=== PATIENT | female | born 1985 | race Caucasian/White ===

== ENCOUNTER 2017-02-09 12:18 | Emergency (ER) | payer OTHER ==
--- NOTE | 2017-02-09 12:32 | UC ---
Abdominal Pain Female HPI - HPI Summary HPI Summary: right lower abdomen pain for 7 days--no nausea vomiting diarrhea,fever, vaginal discharge or urinary symptoms - History of Current Complaint Chief Complaint: UCAbdominalPain Stated Complaint: PAIN ON SIDE Time Seen by Provider: 02/09/17 12:31 Hx Obtained From: Patient Hx Last Menstrual Period: 02/01/17 ?: No Onset/Duration: Gradual Onset, Lasting Days - 7 Timing: Constant Severity Initially: Moderate Severity Currently: Moderate Pain Intensity: 7 Pain Scale Used: 0-10 Numeric Location: Discrete At: RLQ Radiates: No Character: Cramping Aggravating Factor(s): Nothing Alleviating Factor(s): Nothing Associated Signs and Symptoms: Positive: Negative Allergies/Adverse Reactions: Allergies Allergy/AdvReac Type Severity Reaction Status Date / Time Acetaminophen [From Tylenol] Allergy Severe See Comment Verified 02/09/17 12:28 Sulfa Drugs Allergy Severe Airway Verified 02/09/17 12:28 Obstruction PMH/Surg Hx/FS Hx/Imm Hx Previously Healthy: No Psychological History: Depression Other History Of: Negative For: Anticoagulant Therapy - Surgical History Surgical History: None - Family History Known Family History: Positive: None - Social History Occupation: Employed Part-time, Student Lives: With Family Alcohol Use: Rare Substance Use Type: None Substance Use Comment - Amount & Last Used: unknown Smoking Status (MU): Light Every Day Tobacco Smoker Type: Cigarettes Amount Used/How Often: 2/3 cigs per day - Immunization History Most Recent Tetanus Shot: Pt states a few years ago Review of Systems Constitutional: Negative Skin: Negative Eyes: Negative ENT: Negative Respiratory: Negative Cardiovascular: Negative Gastrointestinal: Abdominal Pain Genitourinary: Negative Motor: Negative Neurovascular: Negative Musculoskeletal: Negative Neurological: Negative Psychological: Negative Is Patient Immunocompromised?: No All Other Systems Reviewed And Are Negative: Yes Physical Exam Triage Information Reviewed: Yes Appearance: Well-Appearing, Pain Distress, Thin Vital Signs: Initial Vital Signs Temp 97.7 F 02/09/17 12:21 Pulse 64 02/09/17 12:21 Resp 16 02/09/17 12:21 BP 108/68 02/09/17 12:21 Pulse Ox 100 02/09/17 12:21 Vital Signs Reviewed: Yes Eye Exam: Normal Eyes: Positive: Conjunctiva Clear ENT Exam: Normal ENT: Positive: Normal ENT inspection, Hearing grossly normal. Negative: Nasal congestion, Nasal drainage, Trismus, Muffled/hoarse voice Dental Exam: Normal Neck exam: Normal Neck: Positive: Supple, Nontender Respiratory Exam: Normal Respiratory: Positive: Chest non-tender, Lungs clear, Normal breath sounds, No respiratory distress, No accessory muscle use Cardiovascular Exam: Normal Cardiovascular: Positive: RRR, No Murmur, Pulses Normal, Brisk Capillary Refill Abdominal Exam: Other Abdomen Description: Positive: No Organomegaly, Soft, Other: - rlq pain. Negative: CVA Tenderness (R), CVA Tenderness (L), Distended, McBurney's Point Tenderness, Peritoneal Signs Bowel Sounds: Positive: Present Musculoskeletal Exam: Normal Musculoskeletal: Positive: Strength Intact, ROM Intact, No Edema Neurological Exam: Normal Neurological: Positive: Alert, Muscle Tone Normal Psychological Exam: Normal Skin Exam: Normal Diagnostics - Laboratory Diagnostic Studies Completed/Ordered: UA-+Nitrites - Radiology No standard instances Xray Interpretation: Positive (See Comments) - small amount free fluid in right , left ovary with 2 cm ovarian cyst, iud appears in place Radiology Interpretation Completed By: Radiologist Re-Evaluation - Re-Evaluation First Eval Change: Improved - patient had a brief syncope episode with vomitng after recieveing pain med-(patient states this has happened before) Abd Pain Female Course/Dx - Course Course Of Treatment: NSAIDS, Rest warm compress to abdomen follow with pcp next week to ED for worsening or increasing symptoms - Differential Dx/Diagnosis Differential Diagnosis: Ectopic , Ovarian Cyst, , Renal Colic , Urinary Tract Infection Provider Diagnoses: Ovarian Cyst, UTI Discharge - Discharge Plan Condition: Stable Disposition: HOME Prescriptions: Ibuprofen TAB* [Motrin TAB* 600 MG] 600 mg PO Q6H PRN #40 tab PRN Reason: Pain Nitrofurantoin Monohyd Macro [Macrobid] 100 mg PO BID #20 cap Patient Education Materials: Ovarian Cyst (ED), Urinary Tract Infection in Women (ED), Syncope (ED) Referrals: Ambreen Rao NP [Primary Care Provider] - 2 Weeks
[2017-02-09] MEDS ORDERED: Ketorolac INJ* 60 MG/2 ML VIAL IM ONE (12:37)
--- NOTE | 2017-02-09 15:00 | RAD ---
Indication: 2 weeks RIGHT pelvic pain. History of ovarian cyst. IUD. LMP February 01, 2017. Comparison: June 18, 2012 CT. Technique: Transvaginal pelvic ultrasound. Report: Unremarkable 8.9 x 5.1 x 4.8 cm anteverted uterus. IUD appears in appropriate position in the endometrial cavity. 6.6 mm endometrium thickness. Physiologic small volume of free fluid in the cul-de-sac and RIGHT adnexal region. 3.2 x 2.3 x 2.1 cm RIGHT ovary with documented vascular flow is remarkable for a 0.9 cm dominant follicle. 2.5 x 2.2 x 3.0 cm LEFT ovary with documented vascular flow is remarkable for a 2.0 x 1.8 x 1.9 cm unilocular simple cyst consistent with a follicular cyst. Negative for visualized extra ovarian adnexal region lesions. IMPRESSION: 1. IUD appears in appropriate position. 2. 2.0 cm follicular cyst of the LEFT ovary without concern. 3. Physiologic small volume of free fluid in the cul-de-sac and RIGHT adnexal region.
[2017-02-09 15:21] VITALS: BP 110/72
== END 2017-02-09 15:15 | disposition home or self-care (01) ==
LOC: UCEAST 12:18
DX: N83.209 Unspecified ovarian cyst, unspecified side (principal)
CPT/HCPCS: 76830; 81003; 84702; 87077; 87086; 87186; 96372; 99212; G0463; J1885

== ENCOUNTER 2018-02-14 12:43 | Emergency (ER) | payer SELFPAY ==
[2018-02-14] MEDS ORDERED: NS 0.9% 1000 ML* 1,000 ML IV ONE (13:01)
[2018-02-14] MEDS ORDERED: Ondansetron ODT TAB* 4 MG PO ONE (13:02)
--- OUTSIDE RECORDS SUMMARY | 2018-02-14 13:09 | XMS REPORT ---
:1985 External Reference #:[id number] Author Organization [employer] Address [address] [place] [address] Phone [phone] Care Team Providers Name Role Phone Jacy Ramos MD Primary Care Physician Unavailable Problems Date Description Provider Status Onset: 11/22/2010 Asthma without status asthmaticus Ambreen Rao, N.P. Active Onset: 11/22/2010 Depressive disorder Ambreen Rao, N.P. Active Family History Date Family Member(s) Problem(s) Comments General Sleep Apnea General Asthma Father Hypoglycemia Back Injury Mother Asthma First Son Alive And Well age 6 Siblings 3 2 Brothers, 1 Sister, all with asthma Social History Type Date Description Comments Marital Status Single Lives With Children Occupation Currently Working Cigarette Use current cigarette smoker Cigarette Use Patient is a current cigarette smoker, smokes every day ETOH Use Rarely consumes alcohol Recreational Drug Use Denies Drug Use Smoking Light tobacco smoker (10 or fewer cigarettes/day) Daily Caffeine Half Caf Coffee 16 oz a day, then decaf Exercise Type/Frequency Exercises regularly Elliptical, yoga several times weekly General Hx Text Allergies, Adverse Reactions, Alerts Date Description Reaction Status Severity Comments 11/22/2010 Sulfa hives active Moderate 11/22/2010 Acetaminophen low heart rate active Moderate Medications Medication Date Status Form Strength Qnty SIG Indications Ordering Provider Lorazepam 12/13 Active Tablets 0.5mg 15tab one by F33.9 Ambreen s mouth hs Varn, N.P. prn sleep Escitalopram 12/13 Active Tablets 20mg 30tab take one F33.9 Ambreen s tablet by Varn, N.P. mouth every day Sumatriptan 02/16 Active Tablets 50mg 9tabs take one G43.109 Leonel Succinate /2015 tablet at GREGORY Cook onset of headache. if no relief you can take a second tab 2 hours later. no more than 4 times a month Fluticasone 02/16 Active Suspension 50mcg/Act 16uni 2 sprays J30.9 Leonel Propionate ts each GREGORY Cook nostril qd. Naproxen 12/09 Active Tablets 250mg 30tab 1 tablet G43.109 Leonel s by mouth GREGORY Cook twice at the first sign of migraine as needed Clindamycin 06/06 Hx Cream 2% 40gm one N76.0 Jacy Phosphate applicato Jerry Ramos M.D. 08/10 intravagi manohar at bedtime for 7 nights Ciprofloxacin HCL 05/07 Hx Tablets 250mg 14tab one by R35.0 Ambreen s mouth Varn, N.P. - twice a 05/14 day for days Fluconazole 05/07 Hx Tablets 150mg 2tabs one by R35.0 Ambreen /2017 mouth may Varn, N.P. - repeat in 05/13 3 days needed Paroxetine HCL 08/23 Hx Tablets 40mg 30tab 1 by F41.1 s mouth Varn, N.P. - every day 01/10 Clonazepam 08/23 Hx Tablets 0.5mg 20tab Take One F41.1 s Tablet By Varn, N.P. - Mouth 01/10 as Needed For Sleep; Maximum Daily Dose=1 Clindamycin 07/28 Hx Cream 2% 40gm one N76.0 Ambreen Phosphate applicato Varn, N.P. - r 08/04 intravagi manohar at bedtime for 7 nights Nicotine Mini 07/21 Hx Lozenges 2mg 81uni 1 Z00.00 Leonel ts lozenges GREGORY Cook - every 2 /09 needed. Amoxicillin 02/27 Hx Tablets 500mg 30tab 1 tablet J06.9 Rashard s by mouth GREGORY Zheng - every 8 10/06 hours x 10 days Methylprednisolon 07/19 Hx Tablets 4mg QS as M25.532 Leonel e (Davin) directed GREGORY Cook - on 12/09 package Citalopram 04/06 Hx Tablets 40mg 30tab Take Hydrobromid s One-Half Varn, N.P. - Tablet By 08/23 Twice A Day Prednisone (Davin) 01/26 Hx Tablets 5mg 21tab take 6 354.0 s tabs/30mg GREGORY Velasquez - on day 05/17 1,take tabs/25mg on day 2, take 4 tabs/20mg on day 3, take 3 tabs/15mg on day 4, 2 tabs day 2 Naproxen 01/13 Hx Tablets 250mg 14tab 1 tablet 719.41 Calixto s by mouth Garcia, - twice a M.D. 05/17 day needed pain, with foods Cyclobenzaprine 01/13 Hx Tablets 5mg 21tab 1 tablet 719.41 Calixto HCL s by mouth Garcia, - three M.D. 01/26 times a day as needed Clotrimazole 11/03 Hx Lozenges 10mg 70uni 5 times a 112.0 day Pachikara, - M.D. 01/12 Benzonatate 07/07 Hx Capsules 100mg 30cap one by 465.9 s mouth Varn, N.P. - three 07/21 daily as needed for cough Citalopram 04/02 Hx Tablets 40mg 30tab Take 300.00 Hydrobromide s One-Half Varn, N.P. - Tablet By 01/26 Twice A Day Fluticasone 07/22 Hx Suspension 50mcg/Act 1mon 1 spray 381.04 Huan Propionate each Florence Lakhani, - nostril M.D.,FACP 07/07 in Cleocin 06/13 Hx Cream 2% 1unit 1 s applicato Varn, N.P. - r 06/20 intravagi manohar hs for 7 nights Clindamycin 11/30 Hx Cream 2% 1tube one 616.10 applicato Varn, N.P. - r 12/07 intravagi manohar hs for 7 nights Nuvaring 11/30 Hx Ring 0.12-0.01 1unit insert V25.9 5mg/24HR s one per Varrajendra, N.P. - vagina 11/21 Celexa 11/22 Hx Tablets 20mg 30tab 06/05 Taisha s tablet Amy, Jerry bid M.DCosmo, FACP 12/20 Citalopram 11/22 Hx Tablets 20mg 60tab Take One 300.00 Taisha Hydrobromide s Tablet By Jerry Reyes Mouth MAnurag, FACP 04/02 Every Hours Prilosec Hx Capsules DR 10mg 90cap 1 po qd Unknown /0000 s - 07/07 Oxycodone HCL 00/ Hx Unknown /0000 - 01/26 Medications Administered in Office Medication Date Status Form Strength Qnty SIG Indications Ordering Provider PPD Administered Injection Unknown 7 Immunizations CPT Code Status Date Vaccine Reaction Lot # [id number] Given 07/24/2017 Tdap - No immediate reaction... [id number] Tetanus/Diptheria/Acellula r Pertussis 66406 Given 08/28/1997 Hep B Pediatric/Adolescent 29616 Given 04/06/1997 Hep B Pediatric/Adolescent 13366 Given 08/08/1996 Hep B Pediatric/Adolescent 27185 Given 12/02/1991 Measles Mumps And Rubella MMR 87468 Given 08/22/1988 Measles Mumps And Rubella MMR Vital Signs Date Vital Result Comment 01/29/2018 Height 63 inches 5'3" Weight 101.00 lb Heart Rate 74 /min BP Systolic 128 mmHg BP Diastolic 68 mmHg Body Temperature 97.1 F O2 % BldC Oximetry 99 % BMI (Body Mass Index) 17.9 kg/m2 09/08/2017 Height 63 inches 5'3" Weight 110.00 lb w/ shoes Heart Rate 62 /min BP Systolic Sitting 110 mmHg BP Diastolic Sitting 76 mmHg Respiratory Rate 16 /min O2 % BldC Oximetry 99 % on Ra BMI (Body Mass Index) 19.5 kg/m2 Neck Circumference in inches 11.25 08/10/2017 Weight 110.00 lb Heart Rate 60 /min BP Systolic 102 mmHg BP Diastolic 64 mmHg Body Temperature 98.5 F O2 % BldC Oximetry 97 % 07/24/2017 Height 63 inches 5'3" Weight 110.00 lb Heart Rate 68 /min BP Systolic 96 mmHg BP Diastolic 64 mmHg Body Temperature 96.0 F O2 % BldC Oximetry 98 % BMI (Body Mass Index) 19.5 kg/m2 05/07/2017 Weight 111.00 lb Heart Rate 76 /min BP Systolic 90 mmHg BP Diastolic 60 mmHg Body Temperature 99.2 F O2 % BldC Oximetry 96 % 01/10/2017 Weight 112.75 lb Heart Rate 62 /min BP Systolic 102 mmHg BP Diastolic 60 mmHg Body Temperature 98.3 F O2 % BldC Oximetry 98 % 12/13/2016 Weight 118.50 lb Heart Rate 67 /min BP Systolic 118 mmHg BP Diastolic 78 mmHg Body Temperature 97.9 F O2 % BldC Oximetry 98 % 09/29/2016 Weight 108.50 lb Heart Rate 76 /min BP Systolic 118 mmHg BP Diastolic 66 mmHg Body Temperature 97.5 F O2 % BldC Oximetry 99 % 08/23/2016 Weight 108.00 lb Heart Rate 54 /min BP Systolic Sitting 110 mmHg BP Diastolic Sitting 76 mmHg Body Temperature 97.1 F O2 % BldC Oximetry 99 % 07/28/2016 Height 63 inches 5'3" Weight 106.00 lb Heart Rate 68 /min Body Temperature 97.4 F O2 % BldC Oximetry 98 % BMI (Body Mass Index) 18.8 kg/m2 07/21/2016 Height 63 inches 5'3" Weight 105.00 lb Heart Rate 65 /min BP Systolic 104 mmHg BP Diastolic 74 mmHg O2 % BldC Oximetry 99 % BMI (Body Mass Index) 18.6 kg/m2 02/28/2016 Weight 110.56 lb Heart Rate 86 /min BP Systolic Sitting 110 mmHg BP Diastolic Sitting 78 mmHg Body Temperature 98.0 F O2 % BldC Oximetry 97 % 02/17/2016 Weight 110.00 lb Heart Rate 68 /min BP Systolic Sitting 98 mmHg BP Diastolic Sitting 63 mmHg Respiratory Rate 15 /min Body Temperature 98.3 F O2 % BldC Oximetry 98 % 12/10/2015 Height 63 inches 5'3" Weight 107.38 lb Heart Rate 64 /min BP Systolic Sitting 90 mmHg BP Diastolic Sitting 64 mmHg Body Temperature 98.3 F O2 % BldC Oximetry 98 % BMI (Body Mass Index) 19.0 kg/m2 07/29/2015 Height 63 inches 5'3" Weight 108.00 lb Heart Rate 60 /min BP Systolic Sitting 96 mmHg BP Diastolic Sitting 60 mmHg Respiratory Rate 16 /min Pain Level 0 BMI (Body Mass Index) 19.1 kg/m2 07/19/2015 Weight 108.75 lb Heart Rate 58 /min BP Systolic Sitting 108 mmHg BP Diastolic Sitting 65 mmHg Body Temperature 98.0 F Pain Level 0 O2 % BldC Oximetry 98 % 05/17/2015 Height 63.25 inches 5'3.25" Weight 105.25 lb Heart Rate 88 /min BP Systolic Sitting 96 mmHg BP Diastolic Sitting 64 mmHg Body Temperature 96.6 F Pain Level 0 O2 % BldC Oximetry 98 % BMI (Body Mass Index) 18.5 kg/m2 01/26/2015 Height 63 inches 5'3" Weight 109.75 lb Heart Rate 71 /min BP Systolic Sitting 102 mmHg BP Diastolic Sitting 60 mmHg Respiratory Rate 16 /min Body Temperature 97.2 F Pain Level 3 when not using it, 8 when using it. O2 % BldC Oximetry 97 % BMI (Body Mass Index) 19.4 kg/m2 01/20/2015 Height 63 inches 5'3" Weight 109.00 lb Heart Rate 70 /min BP Systolic 107 mmHg BP Diastolic 72 mmHg BMI (Body Mass Index) 19.3 kg/m2 01/13/2015 Height 63.5 inches 5'3.50" Weight 109.12 lb Heart Rate 57 /min BP Systolic Sitting 96 mmHg BP Diastolic Sitting 60 mmHg Body Temperature 97.5 F O2 % BldC Oximetry 98 % BMI (Body Mass Index) 19.0 kg/m2 11/03/2014 Height 63.5 inches 5'3.50" Weight 108.25 lb Heart Rate 68 /min BP Systolic Sitting 104 mmHg BP Diastolic Sitting 78 mmHg Body Temperature 97.7 F O2 % BldC Oximetry 97 % BMI (Body Mass Index) 18.9 kg/m2 12/22/2013 Height 63.5 inches 5'3.50" Weight 100.75 lb Heart Rate 62 /min BP Systolic Sitting 100 mmHg BP Diastolic Sitting 60 mmHg Body Temperature 98.1 F BMI (Body Mass Index) 17.6 kg/m2 11/21/2013 Weight 105.00 lb Heart Rate 60 /min BP Systolic Sitting 100 mmHg BP Diastolic Sitting 72 mmHg Body Temperature 98.5 F 07/07/2013 Weight 103.25 lb Heart Rate 64 /min BP Systolic 122 mmHg BP Diastolic 84 mmHg Body Temperature 98.3 F 12/16/2012 Weight 99.00 lb Heart Rate 66 /min BP Systolic Sitting 102 mmHg BP Diastolic Sitting 64 mmHg Body Temperature 97.4 F 08/19/2012 Height 63.5 inches 5'3.50" Weight 106.75 lb Heart Rate 64 /min BP Systolic Sitting 120 mmHg BP Diastolic Sitting 60 mmHg Body Temperature 98.4 F BMI (Body Mass Index) 18.6 kg/m2 07/22/2012 Height 63.5 inches 5'3.50" Weight 104.00 lb Heart Rate 72 /min BP Systolic Sitting 104 mmHg BP Diastolic Sitting 60 mmHg Body Temperature 98.5 F BMI (Body Mass Index) 18.1 kg/m2 06/10/2012 Height 62.75 inches 5'2.75" Weight 101.00 lb Heart Rate 62 /min BP Systolic Sitting 110 mmHg BP Diastolic Sitting 70 mmHg BMI (Body Mass Index) 18.0 kg/m2 12/01/2011 Height 62.75 inches 5'2.75" Weight 97.00 lb Heart Rate 68 /min BP Systolic Sitting 106 mmHg BP Diastolic Sitting 60 mmHg Body Temperature 98.7 F BMI (Body Mass Index) 17.3 kg/m2 08/29/2011 Height 62.75 inches 5'2.75" Weight 99.00 lb Heart Rate 70 /min BP Systolic Sitting 98 mmHg BP Diastolic Sitting 64 mmHg Body Temperature 98.5 F BMI (Body Mass Index) 17.7 kg/m2 12/20/2010 Height 62.75 inches 5'2.75" Weight 103.00 lb Heart Rate 68 /min BP Systolic Sitting 90 mmHg BP Diastolic Sitting 60 mmHg BMI (Body Mass Index) 18.4 kg/m2 11/22/2010 Height 62.75 inches 5'2.75" Weight 102.00 lb Heart Rate 60 /min BP Systolic Sitting 102 mmHg BP Diastolic Sitting 76 mmHg BMI (Body Mass Index) 18.2 kg/m2 Results Test Date Test Result H/L Range Note Urine Culture And 05/07/2017 Urine Culture SEE RESULT BELOW 1 Sensitivities Ua Routine 05/07/2017 Ua Specific [place] 1015 Ua PH 7 Ua Color yellow Ua Appera clear Ua WBC neg Ua Protein neg Ua Glucose neg Ua Ketones neg Ua Bilirubin neg Ua Urobilinogen neg Ua Nitrite neg Ua Occult Blood about 250 Urine Culture And Sensitivities 02/09/2017 Urine Culture SEE RESULT BELOW 2, 3 Lipid Profile (Trig/Chol/HDL) 11/10/2016 Triglycerides 61 mg/dL 4 Cholesterol 175 mg/dL 5 HDL Cholesterol 54.1 mg/dL 6 LDL Cholesterol 109 mg/dL 7 Laboratory test finding 11/10/2016 Glucose 76 mg/dL 70-100 8 CBC Auto Diff 09/29/2016 White Blood Count 5.2 10^3/uL 3.5-10.8 Red Blood Count 4.50 10^6/uL 4.0-5.4 Hemoglobin 13.7 g/dL 12.0-16.0 Hematocrit 41 % 35-47 Mean Corpuscular Volume 91 fL 80-97 Mean Corpuscular Hemoglobin 31 pg 27-31 Mean Corpuscular HGB Conc 33 g/dL 31-36 Red Cell Distribution Width 13 % 10.5-15 Platelet Count 266 10^3/uL 150-450 Mean Platelet Volume 8 um3 7.4-10.4 Abs Neutrophils 3.0 10^3/uL 1.5-7.7 Abs Lymphocytes 1.7 10^3/uL 1.0-4.8 Abs Monocytes 0.4 10^3/uL 0-0.8 Abs Eosinophils 0.1 10^3/uL 0-0.6 Abs Basophils 0 10^3/uL 0-0.2 Abs Nucleated RBC 0 10^3/uL Granulocyte % 57.7 % 38-83 Lymphocyte % 32.9 % 25-47 Monocyte % 7.5 % 1-9 Eosinophil % 1.4 % 0-6 Basophil % 0.5 % 0-2 Nucleated Red Blood Cells % 0 Laboratory test finding 09/29/2016 Ferritin 20.0 ng/mL 11-307 TSH (Thyroid Stim Horm) 1.45 mcIU/mL 0.34-5.60 Laboratory test 07/28/2016 Cytology SEE RESULT BELOW 9 finding GC/Chlamydia 07/28/2016 Chlamydia trachomatis Negative Negative Amplified Rna Rna Neisseria gonorrhoeae (GC) Rna Negative Negative GC/Chlamydia Amplified Rna 05/17/2015 Chlamydia trachomatis Rna Negative Negative Neisseria gonorrhoeae (GC) Rna Negative Negative Urine Drug SCR ED & 04/04/2015 Amphetamine Ur Screen None Detected None Detect Pain [facility] Barbiturates Urine Screen None Detected None Detect Benzodiazepine Urine Screen None Detected None Detect Urine Cannabinoids Screen None Detected None Detect Urine Cocaine Screen None Detected None Detect Urine Opiates Screen None Detected None Detect Urine Phencyclidine Screen None Detected None Detect 10 Laboratory test 12/22/2013 Cytology RUN DATE: finding <SEE NOTE> GC/Chlamydia Amplified 12/22/2013 GC/Chlamydia Rna (SEE NOTE) 12 Rna HPV High Risk 12/22/2013 Human Papillomavirus See Comment 13 Source HPV High Risk Type 16, PCR Negative Negative HPV High Risk Type 18, PCR Negative Negative HPV Other Risk types Negative Negative 14 Laboratory test finding 12/10/2012 Magnesium 1.7 mg/dL 1.7-2.6 Lipase 20 U/L Low 22-51 Troponin I 0 ng/mL 0-0.06 15 C Reactive Protein 5.4 mg/dL High Less than 0.5 Comp Metabolic Panel 12/10/2012 Sodium 140 mmol/L 133-145 Potassium 3.3 mmol/L Low 3.5-5.0 Chloride 105 mmol/L 101-111 Co2 Carbon Dioxide 24.0 mmol/L 22-32 Anion Gap 11.0 mmol/L 2-11 Glucose 83 mg/dL 70-100 Blood Urea Nitrogen 7 mg/dL 6-24 Creatinine 0.80 mg/dL 0.50-1.40 BUN/Creatinine Ratio 8.8 8-20 Calcium 8.9 mg/dL 8.1-9.9 Total Protein 6.8 g/dL 6.2-8.1 Albumin 3.9 g/dL 3.6-5.4 Globulin 2.9 g/dL 2-4 Albumin/Globulin Ratio 1.3 1-3 Total Bilirubin 0.8 mg/dL 0.4-1.5 Alkaline Phosphatase 40 U/L 30-110 Alt 23 U/L 14-54 Ast 46 U/L High 12-42 Egfr Non- 87.4 >60 Egfr 112.4 >60 16 Stool For Blood 12/10/2012 Stool Occult Blood (SEE NOTE) 17 Laboratory test finding 12/10/2012 C. difficile Amplified Dna (SEE NOTE) 18 Stool Culture (SEE NOTE) 19 O P: Giardia/Cryptospor Screen (SEE NOTE) 20 Cryptosporidium Confirm Nysdoh (SEE NOTE) 21 Urinalysis 12/10/2012 Urine Color Yellow Urine Appearance Clear Urine Specific [place] 1.027 1.010-1.030 Urine Esterase Negative Negative Urine Nitrate Negative Negative Urine Urobilinogen Negative E.U./dL Negative Urine Protein 1+ mg/dL Negative Urine pH 6.0 5-9 Urine Blood 2+ Negative Urine Ketones 3+ mg/dL Negative Urine Bilirubin 1+ Negative Urine Glucose Negative mg/dL Negative Urine Microscopic 12/10/2012 Urine WBC 1+ (<10 /hpf) None Seen Urine RBC 2+ (>3-10 /hpf) None Seen Urine Mucus Present /lpf Absent Urine Epithelial Cells 2+ Squamous /hpf None Seen Bacteria Urine 1+ None Seen Laboratory test finding 12/10/2012 Inr 0.87 0.87-0.97 Activated Partial Thrombo Time 28.3 seconds 22.18-37.18 Laboratory test finding 12/10/2012 Serum Negative Negative 22 CBC Auto Diff 12/10/2012 White Blood Count 6.9 10^3/uL 4.8-10.8 Red Blood Count 4.89 10^6/uL 4.0-5.4 Hemoglobin 14.6 g/dL 12.0-16.0 Hematocrit 44 % 35-47 Mean Corpuscular Volume 91 fL 80-97 Mean Corpuscular Hemoglobin 30 pg 27-31 Mean Corpuscular HGB Conc 33 g/dL 31-36 Red Cell Distribution Width 13 % 10.5-15 Platelet Count 212 10^3/uL 150-450 Mean Platelet Volume 8 um3 7.4-10.4 Abs Neutrophils 5.2 10^3/uL 1.5-7.7 Abs Lymphocytes 0.7 10^3/uL Low 1.0-4.8 Abs Monocytes 0.7 10^3/uL 0-0.8 Abs Eosinophils 0.2 10^3/uL 0-0.6 Abs Basophils 0 10^3/uL 0-0.2 Abs Nucleated RBC 0 10^3/uL Granulocyte % 75.6 % 38-83 Lymphocyte % 10.7 % Low 25-47 Monocyte % 10.8 % High 1-9 Eosinophil % 2.7 % 0-6 Basophil % 0.2 % 0-2 Nucleated Red Blood Cells % 0 Urinalysis 12/07/2012 Urine Color Yellow Urine Appearance Clear Urine Specific [place] 1.022 1.010-1.030 Urine Esterase 1+ Negative Urine Nitrate Negative Negative Urine Urobilinogen Negative E.U./dL Negative Urine Protein Trace mg/dL Negative Urine pH 5.5 5-9 Urine Blood Negative Negative Urine Ketones 3+ mg/dL Negative Urine Bilirubin 1+ Negative Urine Glucose Negative mg/dL Negative Urine Microscopic 12/07/2012 Urine WBC 1+ (<10 /hpf) None Seen Urine RBC None Seen None Seen Urine Epithelial Cells 1+ Squamous /hpf None Seen Bacteria Urine 1+ None Seen Crystals Urine Amorphous /lpf None Seen Urine Culture And 12/07/2012 Urine Culture (SEE NOTE) 23 Sensitivities CBC Auto Diff 12/07/2012 White Blood Count 8.8 10^3/uL 4.8-10.8 Red Blood Count 5.07 10^6/uL 4.0-5.4 Hemoglobin 15.3 g/dL 12.0-16.0 Hematocrit 47 % 35-47 Mean Corpuscular Volume 92 fL 80-97 Mean Corpuscular Hemoglobin 30 pg 27-31 Mean Corpuscular HGB Conc 33 g/dL 31-36 Red Cell Distribution Width 14 % 10.5-15 Platelet Count 251 10^3/uL 150-450 Mean Platelet Volume 8 um3 7.4-10.4 Abs Neutrophils 7.7 10^3/uL 1.5-7.7 Abs Lymphocytes 0.5 10^3/uL Low 1.0-4.8 Abs Monocytes 0.6 10^3/uL 0-0.8 Abs Eosinophils 0 10^3/uL 0-0.6 Abs Basophils 0 10^3/uL 0-0.2 Abs Nucleated RBC 0.01 10^3/uL Granulocyte % 87.6 % High 38-83 Lymphocyte % 5.6 % Low 25-47 Monocyte % 6.3 % 1-9 Eosinophil % 0.2 % 0-6 Basophil % 0.3 % 0-2 Nucleated Red Blood Cells % 0.1 Comp Metabolic Panel 12/07/2012 Sodium 136 mmol/L 133-145 Potassium 3.4 mmol/L Low 3.5-5.0 Chloride 100 mmol/L Low 101-111 Co2 Carbon Dioxide 26.0 mmol/L 22-32 Anion Gap 10.0 mmol/L 2-11 Glucose 83 mg/dL 70-100 Blood Urea Nitrogen 11 mg/dL 6-24 Creatinine 1.00 mg/dL 0.50-1.40 BUN/Creatinine Ratio 11.0 8-20 Calcium 8.8 mg/dL 8.1-9.9 Total Protein 6.6 g/dL 6.2-8.1 Albumin 4.1 g/dL 3.6-5.4 Globulin 2.5 g/dL 2-4 Albumin/Globulin Ratio 1.6 1-3 Total Bilirubin 0.9 mg/dL 0.4-1.5 Alkaline Phosphatase 46 U/L 30-110 Alt 16 U/L 14-54 Ast 31 U/L 12-42 Egfr Non- 67.6 >60 Egfr 86.9 >60 24 Laboratory test finding 12/07/2012 Lipase 17 U/L Low 22-51 C Reactive Protein 3.4 mg/dL High Less than 0.5 Ua Routine 08/19/2012 Ua Specific [place] 1.005 Ua PH 6 Ua Color pale yellow Ua Appera slight cloudy Ua WBC neg Ua Protein neg Ua Glucose neg Ua Ketones neg Ua Bilirubin neg Ua Urobilinogen neg Ua Nitrite neg Ua Occult Blood large 200+ Laboratory test finding 08/19/2012 Test Urine neg Urinalysis 06/17/2012 Urine Color Yellow Urine Appearance Clear Urine Specific [place] 1.019 1.010-1.030 Urine Esterase Negative Negative Urine Nitrate Negative Negative Urine Urobilinogen Negative E.U./dL Negative Urine Protein Negative mg/dL Negative Urine pH 6.0 5-9 Urine Blood Negative Negative Urine Ketones 2+ mg/dL Negative Urine Bilirubin Negative Negative 25 Urine Glucose Negative mg/dL Negative Laboratory test finding 06/17/2012 Urine Negative Negative 26 CBC Auto Diff 06/17/2012 White Blood Count 9.4 10^3/uL 4.8-10.8 Red Blood Count 4.11 10^6/uL 4.0-5.4 Hemoglobin 13.0 g/dL 12.0-16.0 Hematocrit 38 % 35-47 Mean Corpuscular Volume 92 fL 80-97 Mean Corpuscular Hemoglobin 32 pg High 27-31 Mean Corpuscular HGB Conc 34 g/dL 31-36 Red Cell Distribution Width 12 % 10.5-15 Platelet Count 194 10^3/uL 150-450 Mean Platelet Volume 8 um3 7.4-10.4 Abs Neutrophils 7.3 10^3/uL 1.5-7.7 Abs Lymphocytes 1.3 10^3/uL 1.0-4.8 Abs Monocytes 0.6 10^3/uL 0-0.8 Abs Eosinophils 0.2 10^3/uL 0-0.6 Abs Basophils 0 10^3/uL 0-0.2 Abs Nucleated RBC 0 10^3/uL Granulocyte % 77.4 % 38-83 Lymphocyte % 13.9 % Low 25-47 Monocyte % 6.4 % 1-9 Eosinophil % 2.1 % 0-6 Basophil % 0.2 % 0-2 Nucleated Red Blood Cells % 0 Comp Metabolic Panel 06/17/2012 Sodium 139 mmol/L 133-145 Potassium 3.5 mmol/L 3.5-5.0 Chloride 106 mmol/L 101-111 Co2 Carbon Dioxide 27.0 mmol/L 22-32 Anion Gap 6.0 mmol/L 2-11 Glucose 84 mg/dL 70-100 Blood Urea Nitrogen 8 mg/dL 6-24 Creatinine 0.80 mg/dL 0.50-1.40 BUN/Creatinine Ratio 10.0 8-20 Calcium 8.4 mg/dL 8.1-9.9 Total Protein 6.6 g/dL 6.2-8.1 Albumin 3.7 g/dL 3.6-5.4 Globulin 2.9 g/dL 2-4 Albumin/Globulin Ratio 1.3 1-3 Total Bilirubin 0.5 mg/dL 0.4-1.5 Alkaline Phosphatase 33 U/L 30-110 Alt 10 U/L Low 14-54 Ast 18 U/L 12-42 Egfr Non- 87.4 >60 Egfr 112.4 >60 27 Urinalysis 06/16/2012 Urine Color Yellow Urine Appearance Clear Urine Specific [place] 1.021 1.010-1.030 Urine Esterase Negative Negative Urine Nitrate Positive Negative Urine Urobilinogen Negative E.U./dL Negative Urine Protein Negative mg/dL Negative Urine pH 7.0 5-9 Urine Blood Negative Negative Urine Ketones Negative mg/dL Negative Urine Bilirubin Negative Negative 28 Urine Glucose Negative mg/dL Negative Urine Microscopic 06/16/2012 Urine WBC None Seen None Seen Urine RBC None Seen None Seen Urine Epithelial Cells 1+ Squamous /hpf None Seen Bacteria Urine 3+ None Seen Urine Culture And 06/16/2012 Urine Culture (SEE NOTE) 29 Sensitivities Laboratory test finding 06/10/2012 Cytology RUN DATE: SEE NOTE> GC/Chlamydia Amplified 06/10/2012 GC/Chlamydia Rna (SEE NOTE) 31 Rna GC/Chlamydia Aptima 12/05/2011 M 32 - <SEE NOTE> CBC Auto Diff 10/22/2011 White Blood Count 13.8 CUMM High 4.8-10.8 Red Cell Count 3.97 CUMM Low 4.2-5.4 Hemoglobin 12.8 g/dL 12.0-16.0 Hematocrit 37 % 35-47 Mean Corpuscular Volume 92 um3 79-97 Mean Corpuscular Hemoglob 32 pg High 27-31 Mean Corpuscular HGB Cone 35 g/dL 32-36 Redcell Distribution WDTH 14 % 10.5-15 Platelet Count 228 CUMM 150-450 Mean Platelet Volume 8.2 um3 7.4-10.4 Absolute Neutrophil Count 11.8 High 1.5-7.7 33 Manual Differential 10/22/2011 Polysegmented Neutrophil 91 % High 38-83 Lymphocyte 5 % Low 25-47 Monocyte 4 % 0-13 Anisocytosis SLIGHT Urine Culture & 10/22/2011 M <SEE NOTE> 34, 35 Sensitivi Comp Metabolic Panel 10/22/2011 Sodium 132 mmol/L Low 135-145 Potassium 3.4 mmol/L Low 3.5-5.0 Chloride 101 mmol/L 101-111 Co2 (Carbon Dioxide) 26.0 mmol/L 22-32 Anion Gap 5.0 mmol/L 2-11 36 Glucose 76 mg/dL 70-100 BUN 8 mg/dL 6-24 Creatinine 0.9 mg/dL 0.50-1.40 One Over Creatinine 1.11 BUN/Creatinine Ratio 8.9 8-20 Calcium 8.8 mg/dL 8.1-9.9 Total Protein 6.7 GM/DL 6.2-8.1 Albumin 3.7 GM/DL 3.6-5.4 Globulin 3.0 GM/DL 2-4 Albumin/Globulin Ratio 1.2 1-3 Bilirubin Total 1.1 mg/dL 0.4-1.5 37 Alkaline Phosphatase 46 U/L 30-110 Alt (SGPT) 11 U/L Low 14-54 Ast (Sgot) 17 U/L 12-42 eGFR Non- 76.9 > 60 eGFR 98.9 > 60 38 Laboratory test 10/22/2011 (HCG) NEGATIVE Negative 39 finding Serum Laboratory test 10/22/2011 HIV Self Referred Nonreactive Nonreactive 34 , 40 finding Urinalysis 10/22/2011 Ua Color YELLOW Yellow 34 W/Microscopic Appearance-Urine CLOUDY Clear 34 Specific [place]-Ur 1.015 1.010-1.030 34 Esterase-Urine 3+ Negative 34 Nitrite POSITIVE Negative 34 [id number] NEGATIVE Negative 34 Protein-Urine 2+ Negative 34 PH-Urine 5.5 5-9 34 Blood-Urine 1+ Negative 34 Ketones-Urine 3+ Negative 34 Bilirubin-Ur NEGATIVE Negative 34 Glucose-Urine NEGATIVE Negative 34 WBC-Urine TNTC 0-5 34 RBC-Urine 4-7 0-2 34 Mucus Urine MODERATE None 34 Epith Cells-Ur MANY None 34 Bacteria-Urine 1+ None 34 Amorphous Sed-U FEW None 34 Blood Culture 08/21/2011 M <SEE NOTE> 41 Comp Metabolic Panel 08/21/2011 Sodium 135 mmol/L 135-145 Potassium 3.4 mmol/L Low 3.5-5.0 Chloride 101 mmol/L 101-111 Co2 (Carbon Dioxide) 24.0 mmol/L 22-32 Anion Gap 10.0 mmol/L 2-11 42 Glucose 92 mg/dL 70-100 BUN 8 mg/dL 6-24 Creatinine 0.9 mg/dL 0.50-1.40 One Over Creatinine 1.11 BUN/Creatinine Ratio 8.9 8-20 Calcium 7.4 mg/dL Low 8.1-9.9 Total Protein 6.5 GM/DL 6.2-8.1 Albumin 3.3 GM/DL Low 3.6-5.4 Globulin 3.2 GM/DL 2-4 Albumin/Globulin Ratio 1.0 1-3 Bilirubin Total 0.7 mg/dL 0.4-1.5 43 Alkaline Phosphatase 39 U/L 30-110 Alt (SGPT) 13 U/L Low 14-54 Ast (Sgot) 21 U/L 12-42 eGFR Non- 76.9 > 60 eGFR 98.9 > 60 44 Blood Culture 08/21/2011 M <SEE NOTE> 45 CBC Auto Diff 08/21/2011 White Blood 11.5 CUMM High 4.8-10.8 Count Red Cell Count 3.74 CUMM Low 4.2-5.4 Hemoglobin 11.6 g/dL Low 12.0-16.0 Hematocrit 34 % Low 35-47 Mean Corpuscular Volume 91 um3 79-97 Mean Corpuscular Hemoglob 31 pg 27-31 Mean Corpuscular HGB Cone 34 g/dL 32-36 Redcell Distribution WDTH 13 % 10.5-15 Platelet Count 209 CUMM 150-450 Mean Platelet Volume 7.7 um3 7.4-10.4 46 Manual Differential 08/21/2011 Polysegmented Neutrophil 78 % 38-83 Band Neutrophil 12 % High 0-8 Lymphocyte 8 % Low 25-47 Monocyte 2 % 0-13 Absolute Neutrophil Count 10.3 RBC Morphology NORMAL Laboratory test finding 08/21/2011 (HCG) Serum NEGATIVE Negative 47 Laboratory test finding 12/20/2010 TSH 0.83 MIU/ML 0.34-5.60 1 SEE RESULT BELOW Name: SUZY HAMMONDS : [address]: Ambreen Rao NP Acct: [id number] Unit: [id number] AGE: 32 Location: [facility] Re05/07/17 SEX: F Status: REG REF SPEC: [id number] POLO: 05/07/17-[address]: Ambreen Rao NP REQ: [id number] RECD: 05/07/17 STATUS: COMP _ SOURCE: URINE SPDESC: ORDERED: Urine Culture COMMENTS: [id number] Procedure Result Reported Site Urine Culture Final 05/09/17- 811 ML Organism 1 ESCHERICHIA COLI Chromo Count 50-75,000 (Many) CFU/ML 1. ESCHERICHIA COLI M.I.C. RX --------- ------ Ampicillin <=2 S Cefazolin <=4 S Cefepime <=1 S Ceftriaxone <=1 S Ciprofloxacin <=0.25 S Gentamicin <=1 S Levofloxacin <=0.12 S Meropenem <=0.25 S Nitrofurantoin <=16 S Tetracycline <=1 S Pipercillin/Tazobactam <=4 S Trimethoprim/Sulfamethoxazole <=20 S Amoxicillin/Clavulanic Acid <=2 S Aztreonam <=1 S Contact the Microbiology Department for any additional antibiotic reporting. * ML - MAIN LAB ([facility]) . END OF REPORT * ML=Testing performed at Main Lab DEPARTMENT OF PATHOLOGY, [address] [place] [address] Mikey Sharma M.D. Director [facility] # [id number] 2 [id number] SEE RESULT BELOW Name: NAYELIJuan AlbertoSUZY : [address]: Sole Banegas MD Acct: [id number] Unit: [id number] AGE: 31 Location: [facility] Re02/09/17 SEX: F Status: DEP ER SPEC: [id number] POLO: 02/09/17-[address]: Jess Osborne NP REQ: [id number] RECD: 02/09/17-160 STATUS: REEMA CHRISTENSEN DR: Sole Rao DINKEY MOTOR OPERATOR _ SOURCE: URINE SPDESC: ORDERED: Urine Culture COMMENTS: [id number] Procedure Result Reported Site Urine Culture Final 02/11/17- 0740 ML Organism 1 ESCHERICHIA COLI Chromo Count >100,000 (Many) CFU/ML 1. ESCHERICHIA COLI M.I.C. RX --------- ------ Ampicillin <=2 S Cefazolin <=4 S Cefepime <=1 S Ceftriaxone <=1 S Ciprofloxacin <=0.25 S Gentamicin <=1 S Levofloxacin <=0.12 S Meropenem <=0.25 S Nitrofurantoin 32 S Tetracycline <=1 S Pipercillin/Tazobactam <=4 S Trimethoprim/Sulfamethoxazole <=20 S Amoxicillin/Clavulanic Acid <=2 S Aztreonam <=1 S Contact the Microbiology Department for any additional antibiotic reporting. * ML - MAIN LAB ([facility]) . END OF REPORT * ML=Testing performed at Main Lab DEPARTMENT OF PATHOLOGY, [address] [place] [address] Mikey Sharma M.D. Director [facility] # [id number] 4 Desirable <150 Borderline high 150-199 High 200-499 Very High >500 5 Desirable <200 Borderline high 200-239 High >239 6 Low <40 Desirable: 40-60 High: >60 7 Desirable: <100 mg/dL Near Optimal: 100-129 mg/dL Borderline High: 130-159 mg/dL High: 160-189 mg/dL Very High: >189 mg/dL 8 FASTING 10 HOUR 9 SEE RESULT BELOW Name: SUZY HAMMONDS : [address]: Ambreen Rao NP Acct: [id number] Unit: [id number] AGE: 31 Location: [facility] Re07/28/16 SEX: F Status: REG REF SPEC: [id number] POLO: 07/28/16-[address] [facility] [address]: Ambreen Rao NP REQ: [id number] RECD: 07/28/16 STATUS: SOUT _ ORDERED: IMAGE ANALYSIS COMMENTS: [id number] FINAL DIAGNOSIS Negative for Intraepithelial lesion or Malignancy A. Ectocervical/Endocervical Specimen Adequacy: Satisfactory of evaluation Transformation zone component not identified Patient Information: HPV: Thin Layer Pap Test w/reflex to high risk HPV RNA testing when ASCUS Actual Specimen Date: 07/28/16 LMP If Unknown: unknown ?: N Post Menopausal?: N Hysterectomy?: N Previous Abnormal Pap Smears?:N Other Pertinent History: Has Merina IUD does not menstruate regularly. Signed (signature on file) DASH Antonio(ASCP) 07/31 1256 This Pap test was evaluated with the assistance of the [employer] Test Imaging System. Due to cytologic findings at the artists' booking representative microscope, comprehensive manual rescreening by a Derrick Worker may be required. The Pap Smear is a screening test designed to aid in the detection of premalignant and malignant conditions of the uterine cervix. It is not a diagnostic procedure and should not be used as the sole means of detecting cervical cancer. Both false- positive and false- negative reports do occur. Depending on your risk status, a Pap smear should be obtained and evaluated every 1-3 years. END OF REPORT * ML=Testing performed at Main Lab DEPARTMENT OF PATHOLOGY, [facility] [employer] [place], [place] [address] Mikey Sharma M.D. Director [facility] # [id number] 10 The urine specimen was tested at the listed cutoffs: Drug class test level (ng/mL) Amphetamines 500 Barbituates 200 Benzodiazepine metabolites 200 Cocaine metabolites 150 Cannabinoids 50 Opiates 300 Pcp 25 This is a screening procedure. Positive results are not confirmed. Specimen was received without chain of custody. Results should be used for medical purposes only. 11 RUN DATE: 12/23/13 [facility] LAB LIVE PAGE 1 RUN TIME: 1219 [facility] [employer] [place], [place] [address] Specimen Inquiry Name: SUZY HAMMONDS : [address]: Ambreen Rao NP Acct: [id number] Unit: [id number] AGE: 28 Location: [facility] Re12/22/13 SEX: F Status: REG REF SPEC: [id number] POLO: 12/22/13-[address] [facility] [address]: Ambreen Rao NP REQ: [id number] RECD: 12/22/13-8864 STATUS: SOUT _ ORDERED: IMAGE ANALYSIS, HPV/Thin Prep FINAL DIAGNOSIS Negative for Intraepithelial lesion or Malignancy COMMENTS: Specimen sent to [facility] in [place], [place] on 12/23/13 by [id number] at 1014. Results will be reported separately. A. Ectocervical/Endocervical Specimen Adequacy: Satisfactory of evaluation Transformation zone component identified Patient Information: HPV: High risk HPV DNA testing regardless of pap results. Actual Specimen Date: 12/22/13 Last Menstrual Date: 11/23/13 ?: N Post Menopausal?: N Hysterectomy?: N Previous Abnormal Pap Smears?:N Signed (signature on file) DASH Tidwell (ASCP) 12/23 1219 This Pap test was evaluated with the assistance of the ThinPrep Test Imaging System. Due to cytologic findings at the artists' booking representative microscope, comprehensive manual rescreening by a Derrick Worker may be required. The Pap Smear is a screening test designed to aid in the detection of premalignant and malignant conditions of the uterine cervix. It is not a diagnostic procedure and should not be used as the sole means of detecting cervical cancer. Both false- positive and false- negative reports do occur. Depending on your risk status, a Pap smear shoudl be obtained and evaluated every 1-3 years. END OF REPORT * ML=Testing performed at Main Lab DEPARTMENT OF PATHOLOGY, [address] [place] [address] Mikey Sharma M.D. Director [facility] # [id number] RUN DATE: 12/23/13 [facility] LAB LIVE PAGE 1 RUN TIME: [address] [place] [address] Specimen Inquiry Name: NAYELIJuan AlbertoSUZY : [address]: Ambreen Rao NP Acct: [id number] Unit: [id number] AGE: 28 Location: [facility] Re12/22/13 SEX: F Status: REG REF SPEC: [id number] POLO: 12/22/13-[address] [facility] [address]: Ambreen Rao NP REQ: [id number] RECD: 12/22/13 STATUS: COMP _ SOURCE: ENDOCERVIX SPDESC: ORDERED: KERI/Eloam RNA QUERIES: Medent Number [id number] Procedure Result Verified Site Chlamydia Trachomatis RNA Final 12/23/13- 1432 ML NEGATIVE for Chlamydia trachomatis rRNA GC (N. gonorrhoeae) RNA Final 12/23/13- 1420 ML NEGATIVE for Neisseria gonorrhoeae rRNA A negative result does not preclude the presence of a C. trachomatis or N. gonorrhoeae infection because results are dependent on adequate specimen collection, absence of inhibitors, and sufficient rRNA to be detected. Test results may be affected by improper specimen collection, improper storage, technical error, or specimen mixup. Limitations of the Procedure: The Aptima Combo 2 Assay is not intended for the evaluation of suspected sexual abuse or for other medico-legal indications. For those patients for whom a false positive result may have adverse psychosocial impact, the CDC recommends retesting by a method using an alternate technology. Therapeutic failure or success cannot be determined with the Aptima Combo 2 Assay since nucleic acid may persist following appropriate antimicrobial therapy. Results from the Aptima Combo 2 Assay should be interpreted in conjunction with other laboratory and clinical data available to the clinican. CONTINUED ON NEXT PAGE * ML=Testing performed at Main Lab DEPARTMENT OF PATHOLOGY, [facility] [employer] [place], [place] [address] Mikey Sharma M.D. Director [facility] # [id number] RUN DATE: 12/23/13 [facility] LAB LIVE PAGE 2 RUN TIME: 1431 [facility] [employer] [place], [place] [address] Specimen Inquiry Patient: SUZY HAMMONDS [id number] (Continued) Specimen: [id number] Collected: 12/22/13-1614 Received: 12/22/13 (Continued) Procedure Result Verified Site GC (N. gonorrhoeae) RNA Final (continued) 12/23/13- 4054 Performance characteristics for detecting C. trachomatis and N. gonorrhoeae are derived from high prevalence populations. Positive results in low prevalence populations should be interpreted carefully with the understanding that the likelihood of a false positive may be higher than a true positive. END OF REPORT * ML=Testing performed at Main Lab DEPARTMENT OF PATHOLOGY, [facility] [employer] [place], [place] [address] Mikey Sharma M.D. Director [facility] # [id number] RESULT: Ectocervical/Endocervical 14 The following Other High Risk HPV types were not detected: 31, 33, 35, 39, 45, 51, 52, 56, 58, 59, 66, and 68 Test Performed by: [address] [address] Biomedical Field Service Engineer: Iain Grove III, M.D. 15 Reference Range and Interpretation: TnI (ng/mL) Interpretation Less Than 0.06 ng/mL Not supportive of diagnosis of NH 0.06 - 0.50 ng/mL Indeterminate: suggest serial studies if clinically indicated. Greater than 0.5 ng/mL Consistent with diagnosis of NH 16 Because ethnic data is not always readily available, this report includes an eGFR for both -Americans and non- Americans. The National Kidney Disease Education Program (NKDEP) does not endorse the use of the MDRD equation for patients that are not between the ages of 18 and 70, are , have extremes of body size, muscle mass, or nutritional status, or are non- or non-. According to the National Kidney Foundation, irrespective of diagnosis, the stage of the disease is based on the level of kidney function: Stage Description GFR(mL/min/1.73 m(2)) 1 Kidney damage with normal or decreased GFR 90 2 Kidney damage with mild decrease in GFR 60-89 3 Moderate decrease in GFR 30-59 4 Severe decrease in GFR 15-29 5 Kidney failure <15 (or dialysis) 17 RUN DATE: 12/10/12 [facility] LAB LIVE PAGE 1 RUN TIME: [address] [facility] [employer] [place], [place] [address] Specimen Inquiry Name: SUZY HAMMONDS : [address]: Paulino Cifuentes MD Acct: [id number] Unit: [id number] AGE: 27 Location: ED Re12/10/12 SEX: F Status: REG ER SPEC: [id number] POLO: 12/10/[address]: Paulino Cifuentes MD REQ: [id number] RECD: 12/10/12 STATUS: RES OTHR DR: Ambreen Rao DINKEY MOTOR OPERATOR _ SOURCE: STOOL SPDESC: ORDERED: Hemoccult, Stool Culture, C. diff Amp DNA, O P: Giar/Crypt Procedure Result Verified Site Stool Culture PENDING Stool Specimen Description Final 12/10/12- 38 ML Stool Color Light Brown Stool Form Semi-formed Stool Consistency Soft Shiga Toxin 1 2 PENDING C. difficile Amplified DNA PENDING Stool Occult Blood Final 12/10/12- 33 ML Stool Occult Blood Negative O P: Giardia/Cryptospor Screen PENDING END OF REPORT * ML=Testing performed at Main Lab DEPARTMENT OF PATHOLOGY, [facility] [employer] [place], [place] [address] Mikey Sharma M.D. Director [facility] Permit #[id number] 18 RUN DATE: 12/10/12 [facility] LAB LIVE PAGE 1 RUN TIME: 1433 [facility] [employer] [place], [place] [address] Specimen Inquiry Name: SUZY HAMMONDS : [address]: Paulino Cifuentes MD Acct: [id number] Unit: [id number] AGE: 27 Location: ED Re12/10/12 SEX: F Status: DEP ER SPEC: [id number] POLO: 12/10/[address] [facility] [address]: Paulino Cifuentes MD REQ: [id number] RECD: 12/10/12 STATUS: RES [facility] DR: Ambreen Rao DINKEY MOTOR OPERATOR _ SOURCE: STOOL SPDESC: ORDERED: Hemoccult, Stool Culture, C. diff Amp DNA, O P: Giar/Crypt Procedure Result Verified Site Stool Culture PENDING Stool Specimen Description Final 12/10/12- 0938 ML Stool Color Light Brown Stool Form Semi-formed Stool Consistency Soft Shiga Toxin 1 2 PENDING C. difficile Amplified DNA Final 12/10/12- 1433 ML Organism 1 Neg: No C. difficile detected Assay tests for toxigenic C. difficile with Pathogen Locus (PALOC) TEST LIMITATIONS: Assay does not distinguish between viable and nonviable organisms. Test results are to be used in conjunction with information available from the patient clinical evaluation and other diagnostic procedures. Two distinct groups have been identified that can harbor C. difficile asymptomatically at very high rates. Colonization at rates up to 50% and higher have been reported in infants and rates up to 32% in cystic fibrosis patients. CONTINUED ON NEXT PAGE * ML=Testing performed at Main Lab DEPARTMENT OF PATHOLOGY, [address] [place], [place] [address] Mikey Sharma M.D. Director [facility] Permit #[id number] RUN DATE: 12/10/12 [facility] LAB LIVE PAGE 2 RUN TIME: [address] [place] [address] Specimen Inquiry Patient: SUZY HAMMONDS [id number] (Continued) Specimen: [id number] Collected: 12/10/12 Received: 12/10/12 (Continued) Procedure Result Verified Site C. difficile Amplified DNA Final (continued) 12/10/12- 1433 Stool Occult Blood Final 12/10/12- 932 ML Stool Occult Blood Negative O P: Giardia/Cryptospor Screen PENDING END OF REPORT * ML=Testing performed at Main Lab DEPARTMENT OF PATHOLOGY, [facility] [employer] [place] [address] Mikey Sharma M.D. Director [facility] Permit #[id number] RUN DATE: 12/13/12 [facility] LAB LIVE PAGE 1 RUN TIME: 916 [facility] [employer] [place], [place] [address] Specimen Inquiry Name: SUZY HAMMONDS : [address]: Paulino Cifuentes MD Acct: [id number] Unit: [id number] AGE: 27 Location: ED Re12/10/12 SEX: F Status: DEP ER SPEC: [id number] POLO: [address]: Paulino Cifuentes MD REQ: [id number] RECD: 12/10/12 STATUS: COMP [facility]: Ambreen Rao DINKEY MOTOR OPERATOR _ SOURCE: STOOL SPDESC: ORDERED: Hemoccult, Stool Culture, C. diff Amp DNA, O P: Giar/Crypt COMMENTS: POSITIVE CRYPTOSPORIDUM: Verbal to [id number] by [id number] at 1525 on 12/11/12. Results read back accurately. Submitted to [facility] via [employer] system by [id number] at 1544 on 12/11/12. Procedure Result Verified Site Stool Culture Final 12/13/12- 916 ML Result No enteric pathogens isolated Testing for Salmonella, Shigella, Aeromonas, Plesiomonas, Yersinia and Campylobacter are included in a Stool Culture. Vibrio spp not routinely tested for in a stool culture. If testing is desired, please request specifically when placing test order. Sensitivities not routinely performed on stool isolates, as antibiotics may prolong the carriage rate of bacteria. Please contact the microbiology lab if sensitivities are required. Stool Specimen Description Final 12/10/12- 937 ML Stool Color Light Brown Stool Form Semi-formed Stool Consistency Soft Shiga Toxin 1 2 Final 12/11/12- 1448 ML Organism 1 Negative Shiga Toxin 1 2 CONTINUED ON NEXT PAGE * ML=Testing performed at Main Lab DEPARTMENT OF PATHOLOGY, [address] [place] [address] Mikey Sharma M.D. Director [facility] Permit #[id number] RUN DATE: 12/13/12 [facility] LAB LIVE PAGE 2 RUN TIME: [address] [place] [address] Specimen Inquiry Patient: SUZY HAMMONDS [id number] (Continued) Specimen: [id number] Collected: 12/10/12 Received: 12/10/12 (Continued) Procedure Result Verified Site Shiga Toxin 1 2 Final (continued) 12/11/12 3395 Immunochromatographic Assay C. difficile Amplified DNA Final 12/10/12- 1433 ML Organism 1 Neg: No C. difficile detected Assay tests for toxigenic C. difficile with Pathogen Locus (PALOC) TEST LIMITATIONS: Assay does not distinguish between viable and nonviable organisms. Test results are to be used in conjunction with information available from the patient clinical evaluation and other diagnostic procedures. Two distinct groups have been identified that can harbor C. difficile asymptomatically at very high rates. Colonization at rates up to 50% and higher have been reported in infants and rates up to 32% in cystic fibrosis patients. Stool Occult Blood Final 12/10/12- 0933 ML Stool Occult Blood Negative O P: Giardia/Cryptospor Screen Final 12/11/12- 1546 ML Organism 1 POSITIVE CRYPTOSPORIDIUM Organism 2 Negative Giardia Giardia and cryptosporidium antigen testing performed by enzyme immunoassay. If patient is immunocompromised or has traveled to or is from a developing country, a full ova and parasite exam with microscopic (OPMIC) is recommended. All samples will be held one month in case full ova and parasite testing is requested. Contact the Microbiology Department at [phone]. TEST LIMITATIONS: CONTINUED ON NEXT PAGE * ML=Testing performed at Main Lab DEPARTMENT OF PATHOLOGY, [address] [place] [address] Mikey Sharma M.D. Director [facility] Permit #[id number] RUN DATE: 12/13/12 [facility] LAB LIVE PAGE 3 RUN TIME: [address] [place] [address] Specimen Inquiry Patient: NAYELIJuan AlbertoSUZY [id number] (Continued) Specimen: [id number] Collected: 12/10/12 Received: 12/10/12 (Continued) Procedure Result Verified Site O P: Giardia/Cryptospor Screen Final (continued) 12/11/12- 154 As with all diagnostic procedures, the results obtained should be used in conjunction with other clinical information available the physician. Negative results can occur in samples containing antigen below lower limits of detection of the assay. The use of colonic washes, aspirates or other diluted sample types has not been established and could affect the performance of the assay. Stool samples contaminated with an oily or particulate base (eg. Barium, mineral oil etc.) could interfere with the test and are not recommended. END OF REPORT * ML=Testing performed at Main Lab DEPARTMENT OF PATHOLOGY, [address] [place] [address] Mikey Sahrma M.D. Director [facility] Permit #[id number] RUN DATE: 12/11/12 [facility] LAB LIVE PAGE 1 RUN TIME: [address] [place] [address] Specimen Inquiry Name: CASSIUSSUZY : [address]: Paulino Cifuentes MD Acct: [id number] Unit: [id number] AGE: 27 Location: ED Re12/10/12 SEX: F Status: DEP ER SPEC: [id number] POLO: 12/10/[address] [facility] [address]: Paulino Cifuentes MD REQ: [id number] RECD: 12/10/12 STATUS: RES OTHR DR: Ambreen Rao DINKEY MOTOR OPERATOR _ SOURCE: STOOL SPDESC: ORDERED: Hemoccult, Stool Culture, C. diff Amp DNA, O P: Giar/Crypt COMMENTS: POSITIVE CRYPTOSPORIDUM: Verbal to by [id number] at 1525 on 12/11/12. Results read back accurately. Submitted to [facility] via [employer] system by [id number] at 1544 on 12/11/12. Procedure Result Verified Site Stool Culture Preliminary 12/11/12- 1037 ML <No reportable results for this procedure> Stool Specimen Description Final 12/10/12- 0938 ML Stool Color Light Brown Stool Form Semi-formed Stool Consistency Soft Shiga Toxin 1 2 Final 12/11/12- 1448 ML Organism 1 Negative Shiga Toxin 1 2 Immunochromatographic Assay C. difficile Amplified DNA Final 12/10/12- 1433 ML Organism 1 Neg: No C. difficile detected Assay tests for toxigenic C. difficile with Pathogen Locus (PALOC) TEST LIMITATIONS: Assay does not distinguish between viable and nonviable organisms. Test results are to be used in conjunction with information available from the patient clinical evaluation CONTINUED ON NEXT PAGE * ML=Testing performed at Main Lab DEPARTMENT OF PATHOLOGY, [facility] [employer] [place], [place] [address] Mikey Sharma M.D. Director [facility] Permit #[id number] RUN DATE: 12/11/12 [facility] LAB LIVE PAGE 2 RUN TIME: [address] [facility] [employer] [place], [place] [address] Specimen Inquiry Patient: SUZY HAMMONDS [id number] (Continued) Specimen: [id number] Collected: 12/10/12 Received: 12/10/12 (Continued) Procedure Result Verified Site C. difficile Amplified DNA Final (continued) 12/10/12- 143 and other diagnostic procedures. Two distinct groups have been identified that can harbor C. difficile asymptomatically at very high rates. Colonization at rates up to 50% and higher have been reported in infants and rates up to 32% in cystic fibrosis patients. Stool Occult Blood Final 12/10/12- 0933 ML Stool Occult Blood Negative O P: Giardia/Cryptospor Screen Final 12/11/12- 1546 ML Organism 1 POSITIVE CRYPTOSPORIDIUM Organism 2 Negative Giardia Giardia and cryptosporidium antigen testing performed by enzyme immunoassay. If patient is immunocompromised or has traveled to or is from a developing country, a full ova and parasite exam with microscopic (OPMIC) is recommended. All samples will be held one month in case full ova and parasite testing is requested. Contact the Microbiology Department at [phone]. TEST LIMITATIONS: As with all diagnostic procedures, the results obtained should be used in conjunction with other clinical information available the physician. Negative results can occur in samples containing antigen below lower limits of detection of the assay. The use of colonic washes, aspirates or other diluted sample types has not been established and could affect the performance of the assay. Stool samples contaminated with an oily or particulate base (eg. Barium, mineral oil etc.) could interfere with the test and are not recommended. END OF REPORT * ML=Testing performed at Main Lab DEPARTMENT OF PATHOLOGY, [facility] [employer] [place], [place] [address] Mikey Sharma M.D. Director [facility] Permit #[id number] RUN DATE: 12/18/12 [facility] LAB LIVE PAGE 1 RUN TIME: [address] [facility] [employer] [place], [place] [address] Specimen Inquiry Name: SUZY HAMMONDS : [address]: Paulino Cifuentes MD Acct: [id number] Unit: [id number] AGE: 27 Location: ED Re12/10/12 SEX: F Status: DEP ER SPEC: [id number] POLO: 12/10/[address]: Paulino Cifuentes MD REQ: [id number] RECD: 12/10/12 STATUS: REEMA CHRISTENSEN DR: Ambreen Rao DINKEY MOTOR OPERATOR _ SOURCE: STOOL SPDESC: ORDERED: Crypto [place] Procedure Result Verified Site Cryptosporidium Confirm [facility] Final 12/18/12- 1434 ML Ova and parasite Identification Positive for Cryptosporidium species Acid Fast Stain: Positive Giardia FA: Negative Cryptosporidium FA: Positive Test Performed by [facility] [address] [place] [address], [place] [address] END OF REPORT * ML=Testing performed at Main Lab [facility], [facility] [facility] [place], [place] [address] Mikey Sharma M.D. Director [facility] Permit #[id number] 22 If is still suspected, please repeat test after 48 to 72 hours. This test detects intact HCG only and is indicated for the early detection of . 23 RUN DATE: 12/09/12 [facility] LAB LIVE PAGE 1 RUN TIME: 938 [facility] [employer] [place], [place] [address] Specimen Inquiry Name: SUZY HAMMONDS : [address]: Paul Medina MD Acct: [id number] Unit: [id number] AGE: 27 Location: ED Re12/07/12 SEX: F Status: DEP ER SPEC: [id number] POLO: 12/07/[address]: Paul Medina MD REQ: [id number] RECD: 12/07/12 STATUS: REEMA CHRISTENSEN DR: Ambreen Rao DINKEY MOTOR OPERATOR _ SOURCE: URINE [facility]: ORDERED: Urine Culture Procedure Result Verified Site Urine Culture Final 12/09/12- 39 ML Organism 1 NORMAL THERON Chromo Count 50-75,000 (Many) CFU/ML END OF REPORT * ML=Testing performed at Main Lab DEPARTMENT OF PATHOLOGY, [address] [place] [address] Mikey Sharma M.D. Director [facility] Permit #[id number] 24 Because ethnic data is not always readily available, this report includes an eGFR for both -Americans and non- Americans. The National Kidney Disease Education Program (NKDEP) does not endorse the use of the MDRD equation for patients that are not between the ages of 18 and 70, are , have extremes of body size, muscle mass, or nutritional status, or are non- or non-. According to the National Kidney Foundation, irrespective of diagnosis, the stage of the disease is based on the level of kidney function: Stage Description GFR(mL/min/1.73 m(2)) 1 Kidney damage with normal or decreased GFR 90 2 Kidney damage with mild decrease in GFR 60-89 3 Moderate decrease in GFR 30-59 4 Severe decrease in GFR 15-29 5 Kidney failure <15 (or dialysis) 25 Effective 05/01/12, bilirubin confirmation by ictotest is discontinued. False-positive results for bilirubin may occur due to color interference from large amounts of blood in the urine, very concentrated urine, or drugs that discolor urine such as phenazopyridine(Pyridium). 26 If is still suspected, please repeat test after 48 to 72 hours. This test detects intact HCG only and is indicated for the early detection of . 27 Because ethnic data is not always readily available, this report includes an eGFR for both -Americans and non- Americans. The National Kidney Disease Education Program (NKDEP) does not endorse the use of the MDRD equation for patients that are not between the ages of 18 and 70, are , have extremes of body size, muscle mass, or nutritional status, or are non- or non-. According to the National Kidney Foundation, irrespective of diagnosis, the stage of the disease is based on the level of kidney function: Stage Description GFR(mL/min/1.73 m(2)) 1 Kidney damage with normal or decreased GFR 90 2 Kidney damage with mild decrease in GFR 60-89 3 Moderate decrease in GFR 30-59 4 Severe decrease in GFR 15-29 5 Kidney failure <15 (or dialysis) 28 Effective 05/01/12, bilirubin confirmation by ictotest is discontinued. False-positive results for bilirubin may occur due to color interference from large amounts of blood in the urine, very concentrated urine, or drugs that discolor urine such as phenazopyridine(Pyridium). 29 RUN DATE: 06/19/12 [facility] LAB LIVE PAGE 1 RUN TIME: [address] [place] [address] Specimen Inquiry Name: SUZY HAMMONDS : [address]: Paul Medina MD Acct: [id number] Unit: [id number] AGE: 27 Location: ED Re06/16/12 SEX: F Status: DEP ER SPEC: [id number] POLO: 06/16/[address]: Paul PERSAUD REQ: [id number] RECD: 06/16/12 STATUS: REEMA CHRISTENSEN DR: Ambreen Rao MD _ SOURCE: [facility] ORDERED: Urine Culture Procedure Result Verified Site Urine Culture Final 06/19/12- 07 ML Organism 1 ESCHERICHIA COLI Chromo Count 50-75,000 (Many) CFU/ML 1. ESCHERICHIA COLI M.I.C. RX --------- ------ Amikacin <=2 S Ampicillin 8 S * Ampicillin/Sublactam 4 S Cefazolin <=4 S Cefepime <=1 S Cefoxitin 16 I Ceftazidime <=1 S Ceftriaxone <=1 S Ciprofloxacin <=0.25 S Gentamicin <=1 S Imipenem <=1 S Levofloxacin <=0.12 S Nitrofurantoin 32 S Piperacillin <=4 S Tigecycline <=0.5 S Trimethoprim/Sulfamethoxazole <=20 S * These antibiotics are not available in the [facility] Formulary Contact the Microbiology Department for any additional antibiotic reporting. END OF REPORT * ML=Testing performed at Main Lab DEPARTMENT OF PATHOLOGY, [facility] [place], [place] [address] Mikey Sharma M.D. Director [facility] Permit #[id number] 30 RUN DATE: 06/11/12 [facility] LAB LIVE PAGE 1 RUN TIME: 2483 [facility] [employer] [place], [place] [address] Specimen Inquiry Name: SUZY HAMMONDS : [address]: Ambreen Rao Acct: [id number] Unit: [id number] AGE: 27 Location: [facility] Re06/10/12 SEX: F Status: REG REF SPEC: [id number] POLO: 06/10/12-[address] [facility] [address]: MairaAmbreen REQ: [id number] RECD: 06/11/12-1232 STATUS: SOUT _ ORDERED: IMAGE ANALYSIS FINAL DIAGNOSIS Negative for Intraepithelial lesion or Malignancy Shift in theron suggestive of bacterial vaginosis A. Ectocervical/Endocervical Specimen Adequacy: Satisfactory of evaluation Transformation zone component identified Patient Information: HPV: Thin Layer Pap Test w/reflex to high risk HPV DNA testing when ASCUS Actual Specimen Date: 06/10/12 LMP If Unknown: 04/2012 Cautery: N IUD: N Lesion, grossly demonstrate: N ?: N Post Menopausal?: N Hysterectomy?: N Previous Abnormal Pap Smears?:N Other Pertinent History: Nuvaring Signed (signature on file) DASH Tidwell (ASCP) 06/11 1551 This Pap test was evaluated with the assistance of the [employer] E[employer] Test Imaging System. Due to cytologic findings at the artists' booking representative microscope, comprehensive manual rescreening by a Derrick Worker may be required. The Pap Smear is a screening test designed to aid in the detection of premalignant and malignant conditions of the uterine cervix. It is not a diagnostic procedure and should not be used as the sole means of detecting cervical cancer. Both false- positive and false- negative reports do occur. Depending on your risk status, a Pap smear shoudl be obtained and evaluated every 1-3 years. END OF REPORT * ML=Testing performed at Main Lab DEPARTMENT OF PATHOLOGY, [address] [place] [address] Mikey Sharma M.D. Director [facility] Permit #[id number] 31 RUN DATE: 06/14/12 [facility] LAB LIVE PAGE 1 RUN TIME: [address] [place] [address] Specimen Inquiry Name: NAYELIJuan AlbertoSUZY : [address]: Ambreen Rao Acct: [id number] Unit: [id number] AGE: 27 Location: [facility] Re06/10/12 SEX: F Status: REG REF SPEC: [id number] POLO: 06/10/12-[address]: Ambreen Rao REQ: [id number] RECD: 06/11/12 STATUS: COMP _ SOURCE: THIN SPDESC: ORDERED: KERI/Serina RNA QUERIES: Medent Number [id number] Procedure Result Verified Site Chlamydia Trachomatis RNA Final 06/14/12- 1448 ML NEGATIVE for Chlamydia trachomatis rRNA GC (N. gonorrhoeae) RNA Final 06/14/12- 1448 ML NEGATIVE for Neisseria gonorrhoeae rRNA A negative result does not preclude the presence of a C. trachomatis or N. gonorrhoeae infection because results are dependent on adequate specimen collection, absence of inhibitors, and sufficient rRNA to be detected. Test results may be affected by improper specimen collection, improper storage, technical error, or specimen mixup. Limitations of the Procedure: The Aptima Combo 2 Assay is not intended for the evaluation of suspected sexual abuse or for other medico-legal indications. For those patients for whom a false positive result may have adverse psychosocial impact, the CDC recommends retesting by a method using an alternate technology. Therapeutic failure or success cannot be determined with the Aptima Combo 2 Assay since nucleic acid may persist following appropriate antimicrobial therapy. Results from the Aptima Combo 2 Assay should be interpreted in conjunction with other laboratory and clinical data available to the clinican. CONTINUED ON NEXT PAGE * ML=Testing performed at Main Lab DEPARTMENT OF PATHOLOGY, [facility] [employer] [place], [place] [address] Mikey Sharma M.D. Director [facility] Permit #[id number] RUN DATE: 06/14/12 [facility] LAB LIVE PAGE 2 RUN TIME: 0707 [facility] [employer] [place], [place] [address] Specimen Inquiry Patient: SUZY HAMMONDS [id number] (Continued) Specimen: [id number] Collected: 06/10/12 Received: 06/11/12 (Continued) Procedure Result Verified Site GC (N. gonorrhoeae) RNA Final (continued) 06/14/12- 4780 Performance characteristics for detecting C. trachomatis and N. gonorrhoeae are derived from high prevalence populations. Positive results in low prevalence populations should be interpreted carefully with the understanding that the likelihood of a false positive may be higher than a true positive. END OF REPORT * ML=Testing performed at Main Lab DEPARTMENT OF PATHOLOGY, [address] [place] [address] Mikey Sharma M.D. Director [facility] Permit #[id number] 32 RUN DATE: 12/08/11 [facility] NMI LIVE PAGE 1 RUN TIME: 1304 Specimen Inquiry RUN USER: INTERFACE Name: CASSIUSSUZY Status: REG REF Re12/05/11 Age/Sex: 26/F Unit#: [id number] Location: [facility] : [birth year] SPEC #: [id number] POLO: 12/05/11114 STATUS: COMP REQ #: [id number] RECD: 12/05/[address]: Ambreen Zamora SOURCE: ENDOCERVIX ENTR: 12/05/11-[address]: LIDA: ORDERED: GC/CHL APTIMA QUERIES: MEDENT REQUISITION # [id number] ACT WKST: GCCHL 12/08/11 #1 Procedure Result Verified Site > CHLAMYDIA TRACHOMATIS RNA Final 12/08/11- 1303 ML NEGATIVE FOR CHLAMYDIA TRACHOMATIS rRNA A negative result does not preclude the presence of a C.trachomatis or N.gonorrhoeae infection because results are dependent on adequate specimen collection, absence of inhibitors, and sufficient rRNA to be detected. Test results may be affected by improper specimen collection, improper specimen storage, technical error, or specimen mixup. Limitations of the Procedure: The Aptima Combo 2 Assay is not intended for the evaluation of suspected sexual abuse or for other medico-legal indications. For those patients for whom a false positive result may have adverse psychosocial impact, the CDC recommends retesting by a method using an alternate technology. Therapeutic failure or success cannot be determined with the Aptima Combo 2 Assay since nucleic acid may persist following appropriate antimicrobial therapy. Results from the APTIMA Combo 2 Assay should be interpreted in conjunction with other laboraotry and clinical data available to the clinician. Performance characteristics for detecting C. trachomatis and N. gonorrhoeae are derived from high prevalence populations. Positive results in low prevalence populations should be interpreted carefully with the understanding that the likelihood of a false positive may be higher than a true positive. DEPARTMENT OF PATHOLOGY, [address] [place] [address] [facility] Permit #[id number] Galo Lopez M.D. Tobacco Cutter RUN DATE: 12/08/11 [facility] NMI LIVE PAGE 2 RUN TIME: 1304 Specimen Inquiry RUN USER: INTERFACE Name: SUZY HAMMONDS Status: REG REF Re12/05/11 Age/Sex: 26/F Unit#: [id number] Location: [facility].B. : [birth year] -- -- CONTINU ED Procedure Result Verified Site > GC (N. GONORRHOEAE) RNA Final 12/08/11- 1303 ML NEGATIVE FOR NEISSERIA GONORRHOEAE rRNA A negative result does not preclude the presence of a C.trachomatis or N.gonorrhoeae infection because results are dependent on adequate specimen collection, absence of inhibitors, and sufficient rRNA to be detected. Test results may be affected by improper specimen collection, improper specimen storage, technical error, or specimen mixup. Limitations of the Procedure: The Aptima Combo 2 Assay is not intended for the evaluation of suspected sexual abuse or for other medico-legal indications. For those patients for whom a false positive result may have adverse psychosocial impact, the [facility] recommends retesting by a method using an alternate technology. Therapeutic failure or success cannot be determined with the Aptima Combo 2 Assay since nucleic acid may persist following appropriate antimicrobial therapy. Results from the APTIMA Combo 2 Assay should be interpreted in conjunction with other laboraotry and clinical data available to the clinician. Performance characteristics for detecting C. trachomatis and N. gonorrhoeae are derived from high prevalence populations. Positive results in low prevalence populations should be interpreted carefully with the understanding that the likelihood of a false positive may be higher than a true positive. - [facility] Permit #[id number] [facility] [employer] [place] [address] DEPARTMENT OF PATHOLOGY, [facility] [employer] [place], [place] [address] [facility] Permit #[id number] Mikey Sharma M.D. Director Braeden Gay M.D. Tobacco Cutter 33 Neutrophilia % Lymphopenia % 34 COMMENTS: N 35 RUN DATE: 10/24/11 [facility] NMI LIVE PAGE 1 RUN TIME: 815 Specimen Inquiry RUN USER: INTERFACE Name: SUZY HAMMONDS Status: PRUDENCIO ER Re10/22/11 Age/Sex: 26/F Unit#: [id number] Location: : [birth year] SPEC #: [id number] POLO: 10/22/110 STATUS: REEMA PATTERSON #: [id number] RECD: 10/22/11-[address]: [facility] SOURCE: URINE ENTR: 10/22/11-[address]: Ambreen Zamora [facility]: ORDERED: URINE C S Procedure Result Verified Site > URINE CULTURE SENSITIVI Final 10/24/11- 0815 ML Organism 1 ESCHERICHIA COLI COLONY COUNT 75-100,000 ORGANISMS/ML (MANY) 1. ESCHERICHIA COLI RX M.I.C. ------ --------- AMIKACIN S <=2 LEVOFLOXACIN S <=0.12 AMPICILLIN R >=32 CEFAZOLIN S <=4 CEFTRIAXONE S <=1 CIPROFLOXACIN S <=0.25 GENTAMICIN S <=1 TIGECYCLINE S <=0.5 CEFTAZIDIME S <=1 IMIPENEM S <=1 NITROFURANTOIN S <=16 TRIMETH-SULFA R >=320 *These antibiotics are not available in the [facility] Formulary. Contact the Microbiology Department for any additional antibiotic reporting. - [facility] Permit #[id number] [address] [place] [address] DEPARTMENT OF PATHOLOGY, [address] [place] [address] [facility] Permit #[id number] Mikey Sharma M.D. Director Braeden Gay M.D. Tobacco Cutter 36 Anion gap measurement may be of limited value in the presence of any alkalosis, especially in a combined acid base disorder. . 37 A metabolite of Naproxen, O-desmethylnaproxen, has been shown to interfere with the Jendrtomekaik-Fairdale method for measuring total bilirubin. Samples from patients who have taken Naproxen have shown spurious elevation in total bilirubin levels. 38 Because ethnic data is not always readily available, this report includes an eGFR for both -Americans and non- Americans. The National Kidney Disease Education Program (NKDEP) does not endorse the use of the MDRD equation for patients that are not between the ages of 18 and 70, are , have extremes of body size, muscle mass, or nutritional status, or are non- or non-. According to the National Kidney Foundation, irrespective of diagnosis, the stage of the disease is based on the level of kidney function: Stage Description GFR(mL/min/1.73 m(2)) 1 Kidney damage with normal or decreased GFR 90 2 Kidney damage with mild decrease in GFR 60-89 3 Moderate decrease in GFR 30-59 4 Severe decrease in GFR 15-29 5 Kidney failure <15 (or dialysis) 39 If is still suspected, please repeat test after 48 to 72 hours. . This test detects intact HCG only and is indicated for the early detection of . 40 It is recognized that currently available assays for the detection of antibodies to HIV-1 and/or HIV-2 may not detect all infected individuals. HIV antibodies may be undetectable in some stages of the infection and in some clinical conditions. The performance of this assay has not been established for populations of infants or children. Assayed by Chemiluminescence Microparticle Immunoassay on the Ju [employer] Centaur CP. Values obtained with different methods or kits cannot be used interchangeably.The diagnostic specificity of the ADVIA Centaur 1/O/2 Enhanced assay in the low risk population was 99.90% (6052/6058) with a 95% confidence interval of 99.78 to 99.96%. 41 RUN DATE: 08/26/11 [facility] NMI LIVE PAGE 1 RUN TIME: 1934 Specimen Inquiry RUN USER: INTERFACE Name: CASSIUSSUZY Status: DEP ER Re08/21/11 Age/Sex: 26/F Unit#: [id number] Location: [facility] Henriquez : 89 SPEC #: [id number] POLO: 08/21/11 STATUS: REEMA REKati #: [id number] RECD: 08/21/[address]: Paulino Cifuentes MD SOURCE: BLOOD ENTR: 08/21/[address]: Ambreen Zamora [facility] BLOOD,VENO ORDERED: BLOOD CULTURE ACT WKST: 08/22/11 #1 Procedure Result Verified Site > AEROBIC CULTURE BOTTLE Final 08/26/11- 1934 ML NO GROWTH AFTER 5 DAYS > ANAEROBIC CULTURE BOTTLE Final 08/26/111934 ML NO GROWTH AFTER 5 DAYS ML - [facility] Permit #[id number] [address] [place] [address] DEPARTMENT OF PATHOLOGY, [address] [place] [address] [facility] Permit #[id number] Mikey Sharma M.D. Director Braeden Gay M.D. Tobacco Cutter 42 Anion gap measurement may be of limited value in the presence of any alkalosis, especially in a combined acid base disorder. . 43 A metabolite of Naproxen, O-desmethylnaproxen, has been shown to interfere with the Jendrassik-Fairdale method for measuring total bilirubin. Samples from patients who have taken Naproxen have shown spurious elevation in total bilirubin levels. 44 Because ethnic data is not always readily available, this report includes an eGFR for both -Americans and non- Americans. The National Kidney Disease Education Program (NKDEP) does not endorse the use of the MDRD equation for patients that are not between the ages of 18 and 70, are , have extremes of body size, muscle mass, or nutritional status, or are non- or non-. According to the National Kidney Foundation, irrespective of diagnosis, the stage of the disease is based on the level of kidney function: Stage Description GFR(mL/min/1.73 m(2)) 1 Kidney damage with normal or decreased GFR 90 2 Kidney damage with mild decrease in GFR 60-89 3 Moderate decrease in GFR 30-59 4 Severe decrease in GFR 15-29 5 Kidney failure <15 (or dialysis) 45 RUN DATE: 08/26/11 [facility] NMI LIVE PAGE 1 RUN TIME: 1937 Specimen Inquiry RUN USER: INTERFACE Name: SUZY HAMMONDS Status: DEP ER Re08/21/11 Age/Sex: 26/F Unit#: [id number] Location: : 89 SPEC #: [id number] POLO: 08/21/11 STATUS: COMP REQ #: [id number] RECD: 08/21/[address]: Paulino Cifuentes MD SOURCE: BLOOD ENTR: 08/21/11-[address]: Ambreen Zamora SPDESC: BLOOD,VENO ORDERED: BLOOD CULTURE ACT WKST: BC 08/22/11 #1 Procedure Result Verified Site > AEROBIC CULTURE BOTTLE Final 08/26/111937 ML NO GROWTH AFTER 5 DAYS > ANAEROBIC CULTURE BOTTLE Final 08/26/111937 ML NO GROWTH AFTER 5 DAYS - [facility] Permit #[id number] [address] [place] [address] DEPARTMENT OF PATHOLOGY, [address] [place] [address] [facility] Permit #[id number] Galo Lopez M.D. Tobacco Cutter 46 Neutrophilia % Lymphopenia % 47 If is still suspected, please repeat test after 48 to 72 hours. . This test detects intact HCG only and is indicated for the early detection of . Procedures Description No Information Encounters Type Date Location Provider CPT E/M Dx Office Visit 09/08/2017 [place] [address] R06.83 9:30a [facility] G47.10 Office Visit 08/10/2017 11:20a [facility] Internal Medicine Ambreen Rao, N.P. 178[address] R06.83 - [place] J06.9 Office Visit 07/24/2017 10:40a [facility] Internal Medicine Ambreen Rao, N.P. [address]78[address] Z00.00 - [place] F33.9 F41.1 J45.20 G43.909 F17.210 N20.0 Z23 Office Visit 05/07/2017 1:20p [facility] Internal Medicine Ambreen Rao, N.P. 40839 R35.0 - [place] Office Visit 01/10/2017 1:00p [facility] Internal Medicine Ambreen Rao N.P. 56382 F33.9 - [place] Office Visit 12/13/2016 3:20p [facility] Internal Medicine Ambreen Rao, N.P. 45197 F33.9 - [place] Office Visit 09/29/2016 8:40a [facility] [place] Internal Medicine Ambreen Rao N.P. 74896 F41.1 - [place] G25.81 Office Visit 08/23/2016 2:00p [facility] [place] Internal Medicine Ambreen Rao N.P. 08070 F41.1 - [place] Office Visit 07/28/2016 10:20a [facility] [place] Internal Medicine Ambreen Rao N.P. 41009 Z01.411 - [place] N76.0 Office Visit 07/21/2016 11:00a [facility] [place] Internal Medicine - Leonel Cook, DINKEY MOTOR OPERATOR 95166 Z00.00 [place] Z72.0 Office Visit 02/28/2016 11:20a [facility] Internal Medicine - Rashard Zheng, DINKEY MOTOR OPERATOR [address] Office Visit 02/17/2016 11:40a [facility] Internal Medicine - Leonel Cook, DINKEY MOTOR OPERATOR 72813 G43.109 [place] J30.9 Office Visit 12/10/2015 2:40p [facility] Internal Medicine - Rashard Zheng, DINKEY MOTOR OPERATOR [address] J30.9 Office Visit 07/29/2015 3:00p Orthopedic Services Osiris Liu, 15152 M65.832 Of C.M.ACosmo Rosenthal Office Visit 07/19/2015 3:20p [facility] Internal Medicine Leonel Cook, GREGORY [address]454 M25.532 - [place] Office Visit 05/17/2015 9:20a [facility] Internal Medicine Ambreen Rao, N.P. 25666 F32.9 - [place] N94.3 Z00.00 Office Visit 01/26/2015 10:30a [facility] Internal Medicine - Zeus Velasquez, GREGORY 82110 354.0 [place] 796.4 Office Visit 01/20/2015 4:00p Orthopedic Services Of Rand Franks M.D. 17007 719.41 C.M.ACosmo 726.10 840.9 Office Visit 01/13/2015 10:00a [facility] Internal Medicine Calixto Garcia M.D. 65267 719.41 - [address] Office Visit 11/03/2014 4:20p [facility] Internal Medicine Kristofer Peña, 17616 112.0 - [address] M.DCosmo Office Visit 12/22/2013 3:20p [facility] Internal Medicine Ambreen Rao, N.P. 63098 V70.0 - [place] V72.31 311 493.90 Office Visit 11/21/2013 11:20a [facility] Internal Medicine Ambreen Rao, N.P. 34229 706.2 - [place] Office Visit 07/07/2013 11:40a [facility] Internal Medicine Ambreen Rao, N.P. 27443 465.9 - [place] Office Visit 12/16/2012 3:40p [facility] Internal Medicine Ambreen Rao, N.P. 65298 009.0 - [place] Office Visit 08/19/2012 10:00a [facility] Internal Medicine Ambreen Gutierrezn, N.P. 73937 789.04 - [place] Office Visit 07/22/2012 10:10a [facility] Internal Medicine Huan Florence Lakhani, 50857 381.01 - [place] Galo,[facility] Office Visit 06/10/2012 1:20p [facility] Internal Medicine Ambreen Gutierrezn, N.P. 86587 V70.0 - [place] V72.31 311 493.90 305.1 Office Visit 12/01/2011 3:20p [facility] Internal Medicine Ambreen Varn, N.P. 64185 616.10 - [place] V25.9 Office Visit 08/29/2011 2:00p [facility] Internal Medicine Ambreen Varn, N.P. 00296 480.9 - [place] 311 Office Visit 12/20/2010 11:00a DO Not Use Ambreen Varn, 67597 300.00 [employer] N.P. Office Visit 11/22/2010 10:00a DO Not Use Ambreen Varn, [id number] [phone] [facility] Office Visit 06/17/2009 10:15a DO Not Use Ambreen Varn, [phone] [facility] 785.6 Office Visit 04/20/2009 3:00p DO Not Use Ambreen Varn, [id number] [phone] [facility] Office Visit 01/12/2009 8:30a DO Not Use Ambreen Varn, [id number] 300.00 [facility] Office Visit 12/18/2008 11:00a DO Not Use Ambreen Varn, [id number] 780.8 [facility] 300.00 Office Visit 11/25/2008 1:30p DO Not Use [facility] Ambreen Varn, N.P. [phone] Office Visit 10/19/2008 2:15p DO Not Use [facility] Ambreen Varn, N.P. [phone] Office Visit 09/18/2008 1:45p DO Not Use [facility] Ambreen Rao, [id number] 465.9 N.P. Plan of Care 01/29/2018 - Ambreen Rao, N.P.[id number] Encntr screen for infections w sexl mode of transmissComments:I have ordered several screenings for sexually transmitted diseases. I will contact you with your results.I have ordered HIV screening and I suggest you repeat this again in another 4 weeks.
[2018-02-14 13:51] LABS: ABS Basophils 0 10^3/ul (0-0.2); ABS Eosinophils 0.1 10^3/ul (0-0.6); ABS Lymphocytes 1.6 10^3/ul (1.0-4.8); ABS Monocytes 0.4 10^3/ul (0-0.8); ABS Neutrophils 2.9 10^3/ul (1.5-7.7); ABS Nucleated RBC 0 10^3/ul; Eosinophil % 1.9 % (0-6); Hematocrit 40 % (35-47); Hemoglobin 13.5 g/dl (12.0-16.0); Lymphocyte % 31.5 % (25-47); Mean Corpuscular HGB Conc 34 g/dl (31-36); Mean Corpuscular Hemoglobin 31 pg (27-31); Mean Corpuscular Volume 91 fL (80-97); Nucleated Red Blood Cells % 0.1; Platelet Count 244 10^3/ul (150-450); Red Blood Count 4.36 10^6/ul (4.00-5.40); Red Cell Distribution Width 13 % (10.5-15); White Blood Count 4.9 10^3/ul (3.5-10.8)
[2018-02-14 14:05] LABS: EGFR Non-African American 69.9 (>60)
[2018-02-14] MEDS ORDERED: Ibuprofen TAB* 800 MG PO ONE (14:21)
--- NOTE | 2018-02-14 14:21 | ED ---
Syncope/Near Syncope - HPI Summary HPI Summary: 32-year-old female presents with pre-syncope and right lower quadrant pain for two days. This is similar to pain from ovarian cyst she states that she has had in the past. She denies any urinary symptoms. no nausea or vomiting. no diarrhea or constipation. States that she feels mostly like pass out when she stands up. She had normal appetite and normal sleep pattern. No cough. No recent illness. No chest pain or shortness of breath. Doesn't have a family history of passing out. Does have a personal history of vasovagal. States every time that she has a needlestick she vasovagal. - History Of Current Complaint Chief Complaint: EDDizziness Time Seen by Provider: 02/14/18 12:53 - Allergies/Home Medications Allergies/Adverse Reactions: Allergies Allergy/AdvReac Type Severity Reaction Status Date / Time MS Acetaminophen Allergy Severe See Comment Verified 02/14/18 12:51 [From Tylenol] MS Sulfa Drugs [Sulfa Drugs] Allergy Severe Airway Verified 02/14/18 12:51 Obstruction PMH/Surg Hx/FS Hx/Imm Hx Endocrine/Hematology History: Denies: Hx Anticoagulant Therapy, Hx Diabetes, Hx Thyroid Disease Respiratory History: Reports: Hx Asthma, Hx Chronic Bronchitis, Hx Pneumonia Denies: Hx Sleep Apnea, Other Respiratory Problems/Disorders GI History: Reports: Hx Gastroesophageal Reflux Disease - Indigestion Denies: Hx Cirrhosis, Hx Crohn's Disease, Hx Hiatal Hernia, Hx Irritable Bowel, Hx Jaundice, Hx Ulcer, Other GI Disorders History: Reports: Other Problems/Disorders - bladder infection Musculoskeletal History: Reports: Hx Arthritis, Hx Tendonitis Denies: Hx Bursitis, Other Musculoskeletal History Sensory History: Denies: Hx Cataracts, Hx Glaucoma Opthamlomology History: Denies: Hx Cataracts, Hx Glaucoma Neurological History: Reports: Hx Seizures Denies: Hx Headaches, Hx Migraine, Other Neuro Impairments/Disorders Psychiatric History: Reports: Hx Anxiety, Hx Depression - Cancer History Hx Chemotherapy: No Infectious Disease History: No Infectious Disease History: Denies: Hx Hepatitis, Traveled Outside the [place] in Last 30 Days - Family History Known Family History: Positive: None - Social History Alcohol Use: Rare Substance Use Type: Reports: None Substance Use Comment - Amount & Last Used: unknown Smoking Status (MU): Light Every Day Tobacco Smoker Type: Cigarettes Amount Used/How Often: 2/3 cigs per day Review of Systems Negative: Fever Negative: Chest Pain Negative: Shortness Of Breath Positive: Abdominal Pain Positive: Syncope All Other Systems Reviewed And Are Negative: Yes Physical Exam Triage Information Reviewed: Yes Vital Signs On Initial Exam: Initial Vitals Temp Pulse Resp BP Pulse Ox 99 F 74 16 130/82 100 02/14/18 12:49 02/14/18 12:49 02/14/18 12:49 02/14/18 12:49 02/14/18 12:49 Vital Signs Reviewed: Yes Appearance: Positive: Well-Appearing Skin: Positive: Warm, Dry Head/Face: Positive: Normal Head/Face Inspection Eyes: Positive: Normal, EOMI, EJ, Conjunctiva Clear ENT: Positive: Normal ENT inspection, Pharynx normal, TMs normal Respiratory/Lung Sounds: Positive: Clear to Auscultation, Breath Sounds Present Cardiovascular: Positive: Normal, RRR Abdomen Description: Positive: Soft, Other: - tenderness RLQ Bowel Sounds: Positive: Present Musculoskeletal: Positive: Normal Neurological: Positive: Sensory/Motor Intact, Alert, Oriented to Person Place, Time, CN Intact II-III Psychiatric: Positive: Normal Diagnostics - Vital Signs Vital Signs Temp Pulse Resp BP Pulse Ox 02/14/18 13:21 83 123/90 02/14/18 13:20 70 132/83 02/14/18 12:49 99 F 74 16 130/82 100 - Laboratory Lab Results: Lab Results 02/14/18 02/14/18 02/14/18 Range/Units 13:31 13:31 13:31 WBC 4.9 (3.5-10.8) 10^3/ul RBC 4.36 (4.00-5.40) 10^6/ul Hgb 13.5 (12.0-16.0) g/dl Hct 40 (35-47) % MCV 91 (80-97) fL MCH 31 (27-31) pg MCHC 34 (31-36) g/dl RDW 13 (10.5-15) % Plt Count 244 (150-450) 10^3/ul MPV 8.0 (7.4-10.4) um3 Neut % (Auto) 58.2 (38-83) % Lymph % (Auto) 31.5 (25-47) % Weber % (Auto) 7.5 H (0-7) % Eos % (Auto) 1.9 (0-6) % Baso % (Auto) 0.9 (0-2) % Absolute Neuts (auto) 2.9 (1.5-7.7) 10^3/ul Absolute Lymphs (auto) 1.6 (1.0-4.8) 10^3/ul Absolute Monos (auto) 0.4 (0-0.8) 10^3/ul Absolute Eos (auto) 0.1 (0-0.6) 10^3/ul Absolute Basos (auto) 0 (0-0.2) 10^3/ul Absolute Nucleated RBC 0 10^3/ul Nucleated RBC % 0.1 Sodium 139 (135-145) mmol/L Potassium 3.6 (3.5-5.0) mmol/L Chloride 105 (101-111) mmol/L Carbon Dioxide 28 (22-32) mmol/L Anion Gap 6 (2-11) mmol/L BUN 9 (6-24) mg/dL Creatinine 0.94 (0.51-0.95) mg/dL Est GFR ( Amer) 84.6 (>60) Est GFR (Non-Af Amer) 69.9 (>60) BUN/Creatinine Ratio 9.6 (8-20) Glucose 88 (70-100) mg/dL Lactic Acid 1.3 (0.5-2.0) mmol/L Calcium 9.4 (8.6-10.3) mg/dL Magnesium 1.9 (1.9-2.7) mg/dL Total Bilirubin 0.40 (0.2-1.0) mg/dL AST 18 (13-39) U/L ALT 10 (7-52) U/L Alkaline Phosphatase 33 L (34-104) U/L Troponin I 0.00 (<0.04) ng/mL Total Protein 6.8 (6.4-8.9) g/dL Albumin 4.4 (3.2-5.2) g/dL Globulin 2.4 (2-4) g/dL Albumin/Globulin Ratio 1.8 (1-3) TSH Pending Result Diagrams: 02/14/18 13:31 02/14/18 13:31 Lab Statement: Any lab studies that have been ordered have been reviewed, and results considered in the medical decision making process. - Ultrasound No standard instances Ultrasound Interpretation: No Acute Changes Ultrasound Interpretation Completed By: Radiologist - EKG No standard instances Cardiac Rate: Bradycardia EKG Rhythm: Sinus Bradycardia EKG Interpretation: sinus brachycardia Re-Evaluation - Re-Evaluation First Eval Re-Evaluation Time: 14:29 Comment: will do oral fluids Second Eval Re-Evaluation Time: 15:30 Change: Improved Comment: feeling better with oral fluids, lightheadedness gone Course/Dx Course Of Treatment: 32-year-old female presents with pre-syncope and right lower quadrant pain for two days. This is similar to pain from ovarian cyst she states that she has had in the past. She denies any urinary symptoms. no nausea or vomiting. no diarrhea or constipation. States that she feels mostly like pass out when she stands up. She had normal appetite and normal sleep pattern. No cough. No recent illness. No chest pain or shortness of breath. Doesn't have a family history of passing out. Does have a personal history of vasovagal. States every time that she has a needlestick she vasovagal. On exam normal neuro exam. Patient did vasovagal when did lab work. Discuss will not put IV in as will likely vasovagal and instead do oral fluids. labs wnl. is slight orthostatic as blood pressure drops 10 points systolic. ekg sinus bradycardia. transvaginal u/s normal. discussed patient feeling better after drinking fluids. told to eat more salty snacks as blood pressure low while here. told to follow up with primary. patient understand and agrees with plan. - Diagnoses Differential Diagnosis/HQI/PQRI: Positive: Dysrhythmia, Hypoglycemia, Hypovolemia, Vasovagal Episode Provider Diagnoses: Lightheaded, Abdominal pain Discharge - Sign-Out/Discharge Documenting (check all that apply): Patient Departure - Discharge Plan Condition: Good Disposition: HOME Patient Education Materials: Near Syncope (ED) Referrals: Ambreen Rao NP [Primary Care Provider] - Additional Instructions: drink plenty of fluids eat salty snacks throughout the day Take Tylenol or ibuprofen as needed for pain Follow up with primary within 5 days Return to ED if develop any new or worsening symptoms - Billing Disposition and Condition Condition: GOOD Disposition: Home
--- NOTE | 2018-02-14 15:20 | RAD ---
Indication: Right lower quadrant pain. Real-time sonography of the pelvis was performed. The uterus measures 8.0 x 4.6 x 3.7 cm. Endometrial echo measures 1.1 cm. IUD appears in appropriate location. The right ovary measures 3.7 x 1.8 x 3.2 cm. Left ovary measures 3.1 x 1.9 x 3.1 cm. Trace amount of free fluid is noted in the cul-de-sac. IMPRESSION: Minimal fluid in the cul-de-sac. IUD in appropriate location.
[2018-02-14 15:45] VITALS: BP 106/65
== END 2018-02-14 15:44 | disposition home or self-care (01) ==
LOC: ED 12:43
DX: R10.31 Right lower quadrant pain (principal); R42 Dizziness and giddiness; F17.210 Nicotine dependence, cigarettes, uncomplicated; R00.1 Bradycardia, unspecified
CPT/HCPCS: 36415; 76830; 80053; 83605; 83735; 84443; 84484; 85025; 93005; 96360; 99282; A9270-GY

== ENCOUNTER 2019-02-05 19:37 | Emergency (ER) | payer OTHER ==
[2019-02-05 20:05] LABS: Urine Appearance Cloudy; Urine Bacteria 1+ (Absent); Urine Bilirubin Negative (Negative); Urine Blood Negative (Negative); Urine Color Yellow; Urine Glucose Negative (Negative); Urine Ketones Negative (Negative); Urine Nitrite Negative (Negative); Urine Protein Negative (Negative); Urine Red Blood Cell 2+(6-10/hpf) (Absent); Urine Specific Gravity 1.017 (1.010-1.030); Urine Squamous Epithelial Cell Present (Absent); Urine Urobilinogen Negative (Negative); Urine White Blood Cell 3+(>20/hpf) (Absent)
[2019-02-05 20:53] LABS: ABS Basophils 0.1 10^3/ul (0-0.2); ABS Eosinophils 0.2 10^3/ul (0-0.6); ABS Monocytes 0.5 10^3/ul (0-0.8); ABS Neutrophils 4.7 10^3/ul (1.5-7.7); Eosinophil % 2.2 %; Hematocrit 39 % (35-47); Hemoglobin 13.1 g/dL (12.0-16.0); Lymphocyte % 26.4 %; Mean Corpuscular HGB Conc 34 g/dL (31-36); Mean Corpuscular Hemoglobin 31 pg (27-31); Mean Corpuscular Volume 91 fL (80-97); Mean Platelet Volume 7.2 fL (7.4-10.4); Nucleated Red Blood Cells % 0.1; Platelet Count 290 10^3/uL (150-450); Red Blood Count 4.24 10^6 /uL (3.70-4.87); Red Cell Distribution Width 13 % (10-15); White Blood Count 7.5 10^3/uL (3.5-10.8)
[2019-02-05 21:13] LABS: ALT 8 U/L (7-52); AST 16 U/L (13-39); Albumin 4.3 g/dL (3.2-5.2); Albumin/Globulin Ratio 1.7 (1-3); Alkaline Phosphatase 40 U/L (34-104); Anion Gap 5 mmol/L (2-11); BUN/Creatinine Ratio 12.3 (8-20); Blood Urea Nitrogen 13 mg/dL (6-24); C Reactive Protein 6.04 mg/L (<8.01); CO2 Carbon Dioxide 29 mmol/L (22-32); Calcium 8.9 mg/dL (8.6-10.3); Chloride 105 mmol/L (101-111); EGFR African American 73.2 (>60); EGFR Non-African American 60.5 (>60); Globulin 2.5 g/dL (2-4); Glucose 80 mg/dL (70-100); Potassium 3.4 mmol/L (3.5-5.0); Sodium 139 mmol/L (135-145); Total Protein 6.8 g/dL (6.4-8.9)
[2019-02-05 21:19] LABS: HCG Pregnancy < 0.60 mIU/mL
--- NOTE | 2019-02-05 23:44 | ED ---
GI/ HPI - HPI Summary HPI Summary: Pt is a 33 y/o F presenting to the ED with a chief complaint of constipation. She states she recently began a new control and has been eating a lot of bagels recently, and has not been able to have a bowel movement for the past three days. She also notes chills and increased gas. Tonight, she also experienced nausea, diaphoresis, and one episode of emesis. She also reports urinary sx initially onset 1 week ago, including burning with urination, frequency, and urgency. - History of Current Complaint Chief Complaint: EDConstipation Time Seen by Provider: 02/05/19 23:30 Stated Complaint: CONSTIPATED PER PT Hx Obtained From: Patient Hx Last Menstrual Period: 02/01/17 Onset/Duration: Started Days Ago, Still Present Timing: Constant, Lasting Days Severity: Mild Current Severity: None Pain Intensity: 0 Location of Pain: None Associated Signs and Symptoms: Positive: Nausea, Vomiting, Constipation, Diaphoresis, Chills, UTI Symptoms. Negative: Fever Additional Signs & Symptoms: Positive: Other: - recent change in bc Aggravating Factor(s): Urination Alleviating Factor(s): Nothing - Allergy/Home Medications Allergies/Adverse Reactions: Allergies Allergy/AdvReac Type Severity Reaction Status Date / Time acetaminophen Allergy Severe Bradycardia Verified 02/05/19 19:43 Sulfa (Sulfonamide Allergy Severe Airway Verified 02/05/19 19:43 Antibiotics) Obstruction PMH/Surg Hx/FS Hx/Imm Hx Previously Healthy: Yes Endocrine/Hematology History: Denies: Hx Anticoagulant Therapy, Hx Diabetes, Hx Thyroid Disease Respiratory History: Reports: Hx Asthma, Hx Chronic Bronchitis, Hx Pneumonia Denies: Hx Sleep Apnea, Other Respiratory Problems/Disorders GI History: Reports: Hx Gastroesophageal Reflux Disease - Indigestion Denies: Hx Cirrhosis, Hx Crohn's Disease, Hx Hiatal Hernia, Hx Irritable Bowel, Hx Jaundice, Hx Ulcer, Other GI Disorders History: Reports: Other Problems/Disorders - bladder infection Musculoskeletal History: Reports: Hx Arthritis, Hx Tendonitis Denies: Hx Bursitis, Other Musculoskeletal History Sensory History: Denies: Hx Cataracts, Hx Glaucoma Opthamlomology History: Denies: Hx Cataracts, Hx Glaucoma Neurological History: Reports: Hx Seizures Denies: Hx Headaches, Hx Migraine, Other Neuro Impairments/Disorders Psychiatric History: Reports: Hx Anxiety, Hx Depression - Cancer History Hx Chemotherapy: No Infectious Disease History: No Infectious Disease History: Denies: Hx Hepatitis, Traveled Outside the [place] in Last 30 Days - Family History Known Family History: Negative: Cardiac Disease - Social History Alcohol Use: Rare Hx Substance Use: No Substance Use Type: Reports: None Substance Use Comment - Amount & Last Used: unknown Hx Tobacco Use: Yes Smoking Status (MU): Light Every Day Tobacco Smoker Type: Cigarettes Amount Used/How Often: 2/3 cigs per day Review of Systems Positive: Chills, Skin Diaphoresis. Negative: Fever Positive: Vomiting, Nausea, Other - constipation, gas Positive: burning, frequency, urgency All Other Systems Reviewed And Are Negative: Yes Physical Exam - Summary Physical Exam Summary: Appearance: Well-appearing, Well-nourished, lying in bed comfortably Skin: Warm, dry, no obvious rash Eyes: sclera anicteric, no conjunctival pallor ENT: mucous membranes moist, pharynx appears normal Neck: Supple, nontender Respiratory: Clear to auscultation, no signs of respiratory distress Cardiovascular: Normal S1, S2. No murmurs. Normal distal pulses in tibial and radial bilaterally. Abdomen: Soft, nontender, normal active bowel sounds present Musculoskeletal: Normal, Strength/ROM Intact Neurological: A&Ox3, awake and alert, mentation is normal, speech is fluent and appropriate Psychiatric: affect is normal, does not appear anxious or depressed Triage Information Reviewed: Yes Vital Signs On Initial Exam: Initial Vitals Temp Pulse Resp BP Pulse Ox 98.1 F 65 18 132/82 99 02/05/19 19:39 02/05/19 19:39 02/05/19 19:39 02/05/19 19:39 02/05/19 19:39 Vital Signs Reviewed: Yes Diagnostics - Vital Signs Vital Signs Temp Pulse Resp BP Pulse Ox 02/05/19 21:43 98.0 F 55 16 112/69 99 02/05/19 19:39 98.1 F 65 18 132/82 99 - Laboratory Lab Results: Lab Results 02/05/19 02/05/19 02/05/19 Range/Units 19:54 20:47 20:47 WBC 7.5 (3.5-10.8) 10^3/uL RBC 4.24 (3.70-4.87) 10^6 /uL Hgb 13.1 (12.0-16.0) g/dL Hct 39 (35-47) % MCV 91 (80-97) fL MCH 31 (27-31) pg MCHC 34 (31-36) g/dL RDW 13 (10-15) % Plt Count 290 (150-450) 10^3/uL MPV 7.2 L (7.4-10.4) fL Neut % (Auto) 63.5 % Lymph % (Auto) 26.4 % Titus % (Auto) 7.1 % Eos % (Auto) 2.2 % Baso % (Auto) 0.8 % Absolute Neuts (auto) 4.7 (1.5-7.7) 10^3/ul Absolute Lymphs (auto) 2.0 (1.0-4.8) 10^3/ul Absolute Monos (auto) 0.5 (0-0.8) 10^3/ul Absolute Eos (auto) 0.2 (0-0.6) 10^3/ul Absolute Basos (auto) 0.1 (0-0.2) 10^3/ul Absolute Nucleated RBC 0.0 10^3/ul Nucleated RBC % 0.1 Sodium 139 (135-145) mmol/L Potassium 3.4 L (3.5-5.0) mmol/L Chloride 105 (101-111) mmol/L Carbon Dioxide 29 (22-32) mmol/L Anion Gap 5 (2-11) mmol/L BUN 13 (6-24) mg/dL Creatinine 1.06 H (0.51-0.95) mg/dL Est GFR ( Amer) 73.2 (>60) Est GFR (Non-Af Amer) 60.5 (>60) BUN/Creatinine Ratio 12.3 (8-20) Glucose 80 (70-100) mg/dL Calcium 8.9 (8.6-10.3) mg/dL Total Bilirubin 0.20 (0.2-1.0) mg/dL AST 16 (13-39) U/L ALT 8 (7-52) U/L Alkaline Phosphatase 40 (34-104) U/L C-Reactive Protein 6.04 (<8.01) mg/L Total Protein 6.8 (6.4-8.9) g/dL Albumin 4.3 (3.2-5.2) g/dL Globulin 2.5 (2-4) g/dL Albumin/Globulin Ratio 1.7 (1-3) Lipase 36 (11.0-82.0) U/L Beta HCG, Quant < 0.60 mIU/mL Urine Color Yellow Urine Appearance Cloudy Urine pH 6.0 (5-9) Ur Specific Corwith 1.017 (1.010-1.030) Urine Protein Negative (Negative) Urine Ketones Negative (Negative) Urine Blood Negative (Negative) Urine Nitrate Negative (Negative) Urine Bilirubin Negative (Negative) Urine Urobilinogen Negative (Negative) Ur Leukocyte Esterase 1+ A (Negative) Urine WBC (Auto) 3+(>20/hpf) A (Absent) Urine RBC (Auto) 2+(6-10/hpf) A (Absent) Ur Squamous Epith Cells Present A (Absent) Urine Bacteria 1+ A (Absent) Urine Glucose Negative (Negative) Result Diagrams: 02/05/19 20:47 02/05/19 20:47 Lab Statement: Any lab studies that have been ordered have been reviewed, and results considered in the medical decision making process. GIGU Course/Dx - Course Course Of Treatment: Pt is a 33 y/o F presenting to the ED with a chief complaint of constipation. She also notes chills and increased gas. Tonight, she also experienced nausea, diaphoresis, and one episode of emesis. She also reports urinary sx initially onset 1 week ago, including burning with urination , frequency, and urgency. She denies fever. Pt's physical exam is nml. She will be d/c'ed with dx of UTI and constipation. She is stable and agreeable with this plan. - Diagnoses Provider Diagnoses: UTI (urinary tract infection), Constipation Discharge ED - Sign-Out/Discharge Documenting (check all that apply): Patient Departure Patient Received Moderate/Deep Sedation with Procedure: No - Discharge Plan Condition: Good Disposition: HOME Prescriptions: Nitrofurantoin Macrocrystals* [Macrodantin 100 mg*] 100 mg PO BID #14 cap Ondansetron ODT TAB* [Zofran 4 MG Odt TAB*] 8 mg PO Q6H PRN #10 tab.odt PRN Reason: Nausea Patient Education Materials: Constipation (ED), Urinary Tract Infection in Women (ED) Referrals: Varn,Ambreen, NURSE DISCHARGE PLANNER [Primary Care Provider] - 3 Days (if not better) - Billing Disposition and Condition Condition: GOOD Disposition: Home - Attestation Statements Document Initiated by Aramis: Yes Documenting Scribe: Carey Vivar Provider For Whom Aramis is Documenting (Include Credential): Paul Curran MD. Scribe Attestation: Carey Esteves, reubenibed for Paul Curran MD. on 02/08/19 at 0417. Scribe Documentation Reviewed: Yes Provider Attestation: The documentation as recorded by the aramis, Carey Vivar accurately reflects the service I personally performed and the decisions made by me, Paul Curran MD. Status of Scribe Document: Viewed
[2019-02-05] MEDS: Ondansetron ODT TAB* 4 MG SL ONE (23:50)
[2019-02-06 00:02] VITALS: BP 119/83
--- NOTE | 2019-02-09 15:50 | PN ---
Progress Note - Progress Note Date of Service: 02/05/19 Note: Called pt at 3:40pm No answer Will send letter to call back Macrobid is indeterminate and unsure if will cover pathogens
== END 2019-02-06 00:03 | disposition home or self-care (01) ==
LOC: ED 19:37
DX: K59.00 Constipation, unspecified (principal); N39.0 Urinary tract infection, site not specified; J45.909 Unspecified asthma, uncomplicated; K21.9 Gastro-esophageal reflux disease without esophagitis; F17.210 Nicotine dependence, cigarettes, uncomplicated; Z79.899 Other long term (current) drug therapy; Z88.6 Allergy status to analgesic agent; Z88.2 Allergy status to sulfonamides
CPT/HCPCS: 36415; 80053; 81003; 81015; 83690; 84702; 85025; 86140; 87077; 87086; 87186; 99283; A9270-GY

== ENCOUNTER 2019-04-02 13:49 | Emergency (ER) | payer OTHER ==
[2019-04-02 14:31] VITALS: BP 124/68
--- NOTE | 2019-04-02 15:10 | UC ---
Neck Pain HPI - HPI Summary HPI Summary: 33 yo woman with 6 to 7 days of neck pain progressing to occipital and bitemporal headache, without photophobia, nausea, balance loss, dizziness. Her work place is concerned that it is an infecious illness. No history of injury at time of onset, but she is active with lifting objects both work and home. No upper or lower limb paresthesias or weakness, no associated vertigo. No congestion, sore throat or cough. - History of Current Complaint Chief Complaint: UCHeadache Stated Complaint: HEADACHE Time Seen by Provider: 04/02/19 14:52 Hx Obtained From: Patient Hx Last Menstrual Period: 02/01/17 ?: No Onset/Duration Of Injury/Symptoms: Days - 6-7 Mechanism Of Injury: No Known Trauma Timing: Constant - with fluctuation in intensity Onset/Duration: Gradual Onset, Lasting Days Severity: Moderate Pain Intensity: 2 Character: Aching Aggravating Factors: Movement Alleviating Factors: OTC Meds - using sudafed without relief, and occasional use of ibuprofen Associated Signs & Symptoms: Positive: Headache - Risk Factors Meningitis Risk Factors: Negative - Allergies/Home Medications Allergies/Adverse Reactions: Allergies Allergy/AdvReac Type Severity Reaction Status Date / Time acetaminophen Allergy Severe Bradycardia Verified 04/02/19 14:31 Sulfa (Sulfonamide Allergy Severe Airway Verified 04/02/19 14:31 Antibiotics) Obstruction Home Medications: Home Medications Fluvoxamine (NF) [Luvox (NF)] 200 mg PO DAILY 04/02/19 [History Confirmed ] Norethindrone-E.estradiol-Iron [Wilner Fe 06/23] 1 tab PO DAILY 04/02/19 [History Confirmed 04/02/19] PMH/Surg Hx/FS Hx/Imm Hx Previously Healthy: Yes Psychological History: Depression Other History Of: Negative For: Anticoagulant Therapy - Surgical History Surgical History: Yes Surgery Procedure, Year, and Place: appy - Family History Known Family History: Positive: None - no family history of migraine. Negative: Cardiac Disease - Social History Alcohol Use: Rare Substance Use Type: None Substance Use Comment - Amount & Last Used: unknown Smoking Status (MU): Light Every Day Tobacco Smoker Type: Cigarettes Amount Used/How Often: 2/3 cigs per day - Immunization History Most Recent Tetanus Shot: Pt states a few years ago Review of Systems All Other Systems Reviewed And Are Negative: Yes Constitutional: Positive: Fatigue Skin: Positive: Negative Eyes: Positive: Negative ENT: Negative: Sore Throat, Ear Ache, Nasal Discharge, Sinus Congestion Respiratory: Negative: Cough Cardiovascular: Negative: Chest Pain Gastrointestinal: Positive: Negative Motor: Positive: Negative Musculoskeletal: Positive: Myalgia Neurological: Positive: Headache. Negative: Weakness, Paresthesia, Numbness Psychological: Positive: Negative Is Patient Immunocompromised?: No Physical Exam Triage Information Reviewed: Yes Appearance: Ill-Appearing - looks mildly fatigued, alert, oriented and clear mentation, Pain Distress - mild, Thin Vital Signs: Initial Vital Signs Temp 98.3 F 04/02/19 14:26 Pulse 75 04/02/19 14:26 Resp 18 04/02/19 14:26 BP 124/68 04/02/19 14:26 Pulse Ox 100 04/02/19 14:26 Eye Exam: Other - SOLOMON, no photophobia Eyes: Positive: Conjunctiva Clear ENT: Positive: Pharynx normal, TMs normal Neck: Positive: Supple, Nontender, No Lymphadenopathy Respiratory: Positive: Lungs clear, Normal breath sounds Cardiovascular: Positive: RRR, No Murmur Abdomen Description: Positive: Nontender, No Organomegaly Musculoskeletal Exam: Other - No central spinal tenderness, tender to palpation in the right paraspinal and mid upper trapezius muscle. Musculoskeletal: Positive: Strength Intact, ROM Limited @ Neurological: Positive: Alert, Muscle Tone Normal Psychological Exam: Normal Skin Exam: Normal Neck Pain Course/Dx - Course Course Of Treatment: 33 yo woman with a one week history of progressive neck pain and headache. She was concerned about sinus infection as a possible cause but symtoms and findings are not consistent with sinusitis. Offered toradol injection but she declined. 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 She has been underdosing ibuprofen and using it irregularly, and opts to pursue increased dose of ibuprofen, hot packs and range of motion exercises. She declined referral to physical therapy. - Differential Dx/Diagnosis Differential Dx/HQI/PQRI: Dystonia, Strain, Torticollis, Other - cervicogenic headache Provider Diagnosis: Muscle contraction headache Discharge ED - Sign-Out/Discharge Documenting (check all that apply): Patient Departure All imaging exams completed and their final reports reviewed: No Studies - Discharge Plan Condition: Stable Disposition: HOME Patient Education Materials: Cervical Strain (ED) Forms: *Work Release Referrals: Ambreen Rao NP [Primary Care Provider] - Additional Instructions: The origin of your headache is most likely neck tension. You have chosen to increase ibuprofen rather than take prescriptions medications. Take ibuprofen 600mg with food once at home. You might try warm packs to the neck. STOP use of pseudoephedrine. Follow up if you have continued pain or progressive symptoms. - Billing Disposition and Condition Condition: STABLE Disposition: Home
== END 2019-04-02 15:15 | disposition home or self-care (01) ==
LOC: UCEAST 13:49
DX: R51 Headache (principal); M54.2 Cervicalgia; M79.10 Myalgia, unspecified site; F17.210 Nicotine dependence, cigarettes, uncomplicated; R53.83 Other fatigue; Z88.2 Allergy status to sulfonamides; Z88.8 Allergy status to other drugs, medicaments and biological substances
CPT/HCPCS: 99211; G0463